=== PATIENT | male | born 1965 | race Caucasian/White ===

== ENCOUNTER 2018-08-24 16:26 | Inpatient (IN) | payer MEDICAID ==
[~2018-08-24] VITALS: Ht 170.2 cm; Wt 102.1 kg
[~2018-08-24 16:26] MED LIST: FERR-43 PO; FURO20TA4 PO; Folic Acid PO; IBUP-2030 PO; Lactulose PO; METO25TA6 PO; Multivitamins,Ther W-Minerals PO; PROP10TA10 PO; PROT40 PO; SUCR1ORA2 PO; VITAMIN B1 PO
[2018-08-24] MEDS ORDERED: ONDANSETRON HCL 4MG/2ML INJ IV STA (17:54)
[2018-08-24] MEDS ORDERED: SODIUM CHLORIDE 0.9% 1,000 ML IV ONE ×2 (17:54→19:15)
[2018-08-24 18:58] LABS: HEMATOCRIT. 25.3 % (42.0-52.0); HEMOGLOBIN. 7.9 g/dL (14.0-18.0); MEAN CORPUSCULAR HEMOGLOBIN 24.4 pg (28.0-32.0); MEAN CORPUSCULAR VOLUME 77.6 fL (80.0-94.0); MEAN PLATELET VOLUME 10.3 fl (7.4-10.4); PLATELET 121 x1000/uL (130-400); RED BLOOD CELL COUNT 3.26 mill/uL (4.7-6.1); RED CELL DISTRIBUTION WIDTH 21.8 % (11.6-14.6)
[2018-08-24 18:59] LABS: CHLORIDE 107 mEq/L (98-107)
[2018-08-24] MEDS ORDERED: PANTOPRAZOLE SODIUM 40 MG/VIAL IV ONE (19:00)
[2018-08-24 19:04] LABS: ETHANOL BLOOD < 10 mg/dL; INR 1.4; PARTIAL THROMBOPLASTIN TIME 29.5 sec (23.4-31.0)
[2018-08-24 19:26] LABS: PLATELET ESTIMATE DECREASED
[2018-08-24 23:37] VITALS: BP 162/88
[2018-08-25] VITALS (38 sets, daily range): BP systolic 114–177; BP diastolic 55–111
[2018-08-25] MEDS ORDERED: ONDANSETRON HCL 4MG/2ML INJ IV PRN (00:45)
[2018-08-25] MEDS ORDERED: LORAZEPAM 2MG/ML CPJ IV PRN ×2 (00:45→10:23)
[2018-08-25] MEDS: MORPHINE SULFATE 4 MG/ML CPJ (NOT FOR IM USE) IV PRN ×2 (01:04→10:18)
[2018-08-25] MEDS: PANTOPRAZOLE 80 MG in SODIUM CHLORIDE 0.9% 100 ML IV SCH ×3 (02:17→17:43)
[2018-08-25] MEDS: OCTREOTIDE 1,000 MCG in SODIUM CHLORIDE 0.9% 98 ML IV PRN ×2 (04:29→17:43)
[2018-08-25] MEDS: DEXT 5%/0.45% NACL KCL 20MEQ/L 1,000 ML IV SCH ×2 (04:29→12:28)
[2018-08-25 07:22] LABS: BASOPHILS % 0.4 % (0.0-2.0); EOSINOPHILS % 2.8 % (0.0-5.0); HEMOGLOBIN. 8.6 g/dL (14.0-18.0); LYMPHOCYTES % 8.8 % (20.0-50.0); MEAN CORPUSCULAR HEMOGLOBIN 26.1 pg (28.0-32.0); MEAN CORPUSCULAR VOLUME 79.1 fL (80.0-94.0); MEAN PLATELET VOLUME 10.8 fl (7.4-10.4); MONOCYTES % 8.6 % (2.0-8.0); NEUTROPHILS % 79.4 % (40.0-76.0); PLATELET 116 x1000/uL (130-400); RED BLOOD CELL COUNT 3.29 mill/uL (4.7-6.1); RED CELL DISTRIBUTION WIDTH 21.6 % (11.6-14.6)
[2018-08-25 08:00] LABS: CHLORIDE 111 mEq/L (98-107)
[2018-08-25] MEDS ORDERED: HYDRALAZINE 20MG/ML VIAL IV PRN (10:30)
[2018-08-25 11:00] LABS: TOTAL IRON BINDING CAPACITY 259 ug/dL (250-450)
[2018-08-25 11:23] LABS: FOLIC ACID (FOLATE) SERUM 5.4 ng/mL (>5.38)
[2018-08-25] MEDS ORDERED: INFLUENZA VIRUS VACCINE(AFLURIA) 0.5ML SYR IM ONE (12:00)
[2018-08-25] MEDS: CHLORDIAZEPOXIDE 25MG CAPSULE PO SCH ×2 (13:30→22:00)
[2018-08-25] MEDS ORDERED: MIDAZOLAM HCL 5 MG/5 ML VIAL IV PRN (14:41)
[2018-08-25] MEDS ORDERED: FENTANYL CITRATE/PF 50MCG/ML 2ML VIAL IV PRN (14:42)
[2018-08-25] MEDS ORDERED: FENTANYL CITRATE/PF 50MCG/ML 2ML VIAL ONE (14:46)
[2018-08-25] MEDS ORDERED: MIDAZOLAM HCL 5 MG/5 ML VIAL ONE (14:46)
[2018-08-25 16:29] LABS: HEMATOCRIT 25.9 % (42.0-52.0); HEMOGLOBIN 8.3 g/dL (14.0-18.0)
[2018-08-25] MEDS: DEXT 5%/0.45% NACL 1000ML 1,000 ML IV SCH (16:50)
[2018-08-25] MEDS: SODIUM HYPOCHLORITE 0.125% 473ML SOLUTION TOP SCH (18:00)
[2018-08-26] VITALS (44 sets, daily range): BP systolic 117–179; BP diastolic 60–106
[2018-08-26] MEDS: MORPHINE SULFATE 4 MG/ML CPJ (NOT FOR IM USE) IV PRN ×3 (00:53→21:49)
[2018-08-26] MEDS: PANTOPRAZOLE 80 MG in SODIUM CHLORIDE 0.9% 100 ML IV SCH ×3 (01:58→23:32)
[2018-08-26] MEDS: DEXT 5%/0.45% NACL 1000ML 1,000 ML IV SCH ×3 (01:58→21:37)
[2018-08-26] MEDS: CHLORDIAZEPOXIDE 25MG CAPSULE PO SCH ×3 (06:00→21:37)
[2018-08-26 06:12] LABS: BASOPHILS % 1.6 % (0.0-2.0); EOSINOPHILS % 4.5 % (0.0-5.0); HEMATOCRIT. 24.6 % (42.0-52.0); HEMOGLOBIN. 7.9 g/dL (14.0-18.0); MEAN CORPUSCULAR HEMOGLOBIN 25.6 pg (28.0-32.0); MEAN CORPUSCULAR VOLUME 79.5 fL (80.0-94.0); MEAN PLATELET VOLUME 10.3 fl (7.4-10.4); MONOCYTES % 6.6 % (2.0-8.0); NEUTROPHILS % 77.3 % (40.0-76.0); PLATELET 122 x1000/uL (130-400); RED CELL DISTRIBUTION WIDTH 21.7 % (11.6-14.6)
[2018-08-26 06:15] LABS: AMMONIA 104 uMol/L (<32)
[2018-08-26 06:24] LABS: CHLORIDE 107 mEq/L (98-107)
[2018-08-26 06:35] LABS: INR 1.4; PROTHROMBIN TIME 13.8 sec (9.1-11.1)
[2018-08-26] MEDS: LACTULOSE 20G/30ML UDC PO SCH (10:58)
[2018-08-26 11:15] LABS: HEMATOCRIT 23.9 % (42.0-52.0); HEMOGLOBIN 7.8 g/dL (14.0-18.0)
[2018-08-26] MEDS: OCTREOTIDE 1,000 MCG in SODIUM CHLORIDE 0.9% 98 ML IV PRN (13:15)
[2018-08-26] MEDS: SODIUM HYPOCHLORITE 0.125% 473ML SOLUTION TOP SCH (13:16)
[2018-08-26 19:32] LABS: HEMATOCRIT 23.7 % (42.0-52.0); HEMOGLOBIN 7.6 g/dL (14.0-18.0)
[2018-08-27] VITALS (45 sets, daily range): BP systolic 133–163; BP diastolic 43–113
[2018-08-27 02:20] LABS: HEMATOCRIT 24.7 % (42.0-52.0)
[2018-08-27 05:24] LABS: BASOPHILS % 1.1 % (0.0-2.0); EOSINOPHILS % 8.4 % (0.0-5.0); HEMATOCRIT. 25.4 % (42.0-52.0); HEMOGLOBIN. 8.1 g/dL (14.0-18.0); LYMPHOCYTES % 9.2 % (20.0-50.0); MEAN CORPUSCULAR HEMOGLOBIN 25.8 pg (28.0-32.0); MEAN CORPUSCULAR VOLUME 80.6 fL (80.0-94.0); MEAN PLATELET VOLUME 10.2 fl (7.4-10.4); MONOCYTES % 7.9 % (2.0-8.0); NEUTROPHILS % 73.4 % (40.0-76.0); PLATELET 121 x1000/uL (130-400); RED BLOOD CELL COUNT 3.16 mill/uL (4.7-6.1); RED CELL DISTRIBUTION WIDTH 22.1 % (11.6-14.6)
[2018-08-27 05:34] LABS: CHLORIDE 106 mEq/L (98-107)
[2018-08-27 05:39] LABS: AMMONIA 93 uMol/L (<32)
[2018-08-27] MEDS: OCTREOTIDE 1,000 MCG in SODIUM CHLORIDE 0.9% 98 ML IV PRN ×2 (05:54→23:12)
[2018-08-27] MEDS: CHLORDIAZEPOXIDE 25MG CAPSULE PO SCH ×3 (05:54→21:57)
[2018-08-27] MEDS: LACTULOSE 20G/30ML UDC PO SCH (08:47)
[2018-08-27] MEDS: DEXT 5%/0.45% NACL 1000ML 1,000 ML IV SCH ×2 (08:48→18:20)
[2018-08-27] MEDS: SODIUM HYPOCHLORITE 0.125% 473ML SOLUTION TOP SCH (08:48)
[2018-08-27] MEDS: PANTOPRAZOLE 80 MG in SODIUM CHLORIDE 0.9% 100 ML IV SCH ×2 (15:03→23:12)
[2018-08-27] MEDS: MORPHINE SULFATE 4 MG/ML CPJ (NOT FOR IM USE) IV PRN (15:04)
[2018-08-27] MEDS ORDERED: POTASSIUM CHLORIDE 20MEQ TABLET SR PO NR (17:30)
[2018-08-28] VITALS (12 sets, daily range): BP systolic 130–173; BP diastolic 73–136
[2018-08-28] MEDS: CHLORDIAZEPOXIDE 25MG CAPSULE PO SCH ×3 (05:26→21:20)
[2018-08-28] MEDS: DEXT 5%/0.45% NACL 1000ML 1,000 ML IV SCH ×2 (05:26→14:47)
[2018-08-28 06:39] LABS: BASOPHILS % 0.9 % (0.0-2.0); EOSINOPHILS % 8.6 % (0.0-5.0); HEMATOCRIT. 25.4 % (42.0-52.0); HEMOGLOBIN. 8.4 g/dL (14.0-18.0); LYMPHOCYTES % 9.8 % (20.0-50.0); MEAN CORPUSCULAR HEMOGLOBIN 26.9 pg (28.0-32.0); MEAN CORPUSCULAR VOLUME 81.3 fL (80.0-94.0); MEAN PLATELET VOLUME 10.4 fl (7.4-10.4); MONOCYTES % 9.3 % (2.0-8.0); NEUTROPHILS % 71.4 % (40.0-76.0); PLATELET 136 x1000/uL (130-400); RED BLOOD CELL COUNT 3.12 mill/uL (4.7-6.1); RED CELL DISTRIBUTION WIDTH 22.3 % (11.6-14.6)
[2018-08-28 06:48] LABS: AMMONIA 95 uMol/L (<32)
[2018-08-28 06:56] LABS: CHLORIDE 105 mEq/L (98-107)
[2018-08-28] MEDS: SODIUM HYPOCHLORITE 0.125% 473ML SOLUTION TOP SCH (09:16)
[2018-08-28] MEDS: LACTULOSE 20G/30ML UDC PO SCH ×3 (09:16→18:13)
[2018-08-28] MEDS: PANTOPRAZOLE 80 MG in SODIUM CHLORIDE 0.9% 100 ML IV SCH ×2 (09:17→21:20)
[2018-08-29] VITALS (11 sets, daily range): BP systolic 121–157; BP diastolic 48–93
[2018-08-29] MEDS: DEXT 5%/0.45% NACL 1000ML 1,000 ML IV SCH ×2 (01:33→10:33)
[2018-08-29] MEDS: CHLORDIAZEPOXIDE 25MG CAPSULE PO SCH ×2 (05:40→13:32)
[2018-08-29 07:07] LABS: AMMONIA 51 uMol/L (<32)
[2018-08-29 07:19] LABS: BASOPHILS % 1.4 % (0.0-2.0); EOSINOPHILS % 7.3 % (0.0-5.0); HEMATOCRIT. 25.7 % (42.0-52.0); HEMOGLOBIN. 8.2 g/dL (14.0-18.0); LYMPHOCYTES % 14.7 % (20.0-50.0); MEAN CORPUSCULAR HEMOGLOBIN 26.1 pg (28.0-32.0); MEAN CORPUSCULAR VOLUME 81.6 fL (80.0-94.0); MEAN PLATELET VOLUME 10.2 fl (7.4-10.4); MONOCYTES % 8.3 % (2.0-8.0); NEUTROPHILS % 68.3 % (40.0-76.0); PLATELET 131 x1000/uL (130-400); RED BLOOD CELL COUNT 3.16 mill/uL (4.7-6.1); RED CELL DISTRIBUTION WIDTH 22.6 % (11.6-14.6)
[2018-08-29 07:32] LABS: CHLORIDE 106 mEq/L (98-107)
[2018-08-29] MEDS: LACTULOSE 20G/30ML UDC PO SCH ×3 (09:39→17:35)
[2018-08-29] MEDS: PANTOPRAZOLE 80 MG in SODIUM CHLORIDE 0.9% 100 ML IV SCH (09:40)
[2018-08-29] MEDS: SODIUM HYPOCHLORITE 0.125% 473ML SOLUTION TOP SCH (09:40)
[2018-08-29] MEDS: MORPHINE SULFATE 4 MG/ML CPJ (NOT FOR IM USE) IV PRN (10:33)
[2018-08-30] MEDS ORDERED: PANTOPRAZOLE 40MG DR TABLET PO SCH (07:30)
== END 2018-08-29 20:00 | disposition home health service (06) | DRG 280 ==
LOC: ER 16:26 → 3WST 19:34 → EDBEDREQ 19:38 → EDBEDREQSVC 19:38 → ENRESERV 20:46 → 3WST 23:54 → MICUSO 08-25 15:20 → 5EST 08-27 22:34
PROVIDERS: ADMIT Internal Medicine; ATTEND Internal Medicine
PROC: 30233N1 Transfusion of Nonautologous Red Blood Cells into Peripheral Vein, Percutaneous Approach (ICD-10-PCS; 2018-08-24)
PROC: 06L38CZ Occlusion of Esophageal Vein with Extraluminal Device, Via Natural or Artificial Opening Endoscopic (ICD-10-PCS; principal; 2018-08-25 13:00)
DX: K70.31 Alcoholic cirrhosis of liver with ascites (principal); I85.11 Secondary esophageal varices with bleeding; E43 Unspecified severe protein-calorie malnutrition; J90 Pleural effusion, not elsewhere classified; D69.59 Other secondary thrombocytopenia; D68.4 Acquired coagulation factor deficiency; K76.6 Portal hypertension; L03.115 Cellulitis of right lower limb; L97.919 Non-pressure chronic ulcer of unspecified part of right lower leg with unspecified severity; F10.10 Alcohol abuse, uncomplicated; D50.9 Iron deficiency anemia, unspecified; D63.8 Anemia in other chronic diseases classified elsewhere; I10 Essential (primary) hypertension; I87.2 Venous insufficiency (chronic) (peripheral); K40.20 Bilateral inguinal hernia, without obstruction or gangrene, not specified as recurrent; K31.89 Other diseases of stomach and duodenum; E66.9 Obesity, unspecified; I73.9 Peripheral vascular disease, unspecified; K31.9 Disease of stomach and duodenum, unspecified; K42.9 Umbilical hernia without obstruction or gangrene; K44.9 Diaphragmatic hernia without obstruction or gangrene; Z68.35 Body mass index [BMI] 35.0-35.9, adult
CPT/HCPCS: 36415; 71045; 74176; 80048; 80053; 80076; 82105; 82140; 82607; 82728; 82746; 83540; 83550; 83690; 83880; 84484; 85014; 85018; 85025; 85610; 85730; 86850; 86900; 86920; 90686; 93005; 93970; 96361; 96374; 96375; 99291; C9113; G0482; J0360; J2060; J2250; J2270; J2354; J2405; J3010; J3490; J7030; J7050; P9016

== ENCOUNTER 2019-08-06 08:04 | Inpatient (IN) | payer MEDICAID ==
[~2019-08-06] VITALS: Ht 172.7 cm; Wt 104.3 kg
[2019-08-06] VITALS (7 sets, daily range): BP systolic 132–142; BP diastolic 69–83
[2019-08-06] MEDS ORDERED: MORPHINE SULFATE 4 MG/ML CPJ (NOT FOR IM USE) IV STA (08:36)
[2019-08-06] MEDS ORDERED: PANTOPRAZOLE SODIUM 40 MG/VIAL IV STA (08:36)
[2019-08-06] MEDS ORDERED: ONDANSETRON HCL 4MG/2ML INJ IV STA (08:36)
[2019-08-06] MEDS ORDERED: SODIUM CHLORIDE 0.9% 1,000 ML IV ONE (08:36)
[2019-08-06 09:24] LABS: BASOPHILS % 0.9 % (0.0-2.0); EOSINOPHILS % 0.6 % (0.0-5.0); HEMATOCRIT. 22.7 % (42.0-52.0); HEMOGLOBIN. 7.1 g/dL (14.0-18.0); LYMPHOCYTES % 7.5 % (20.0-50.0); MEAN CORPUSCULAR VOLUME 80.4 fL (80.0-94.0); MEAN PLATELET VOLUME 11.2 fl (7.4-10.4); MONOCYTES % 8.7 % (2.0-8.0); NEUTROPHILS % 82.3 % (40.0-76.0); PLATELET 190 x1000/uL (130-400); RED BLOOD CELL COUNT 2.82 mill/uL (4.7-6.1); RED CELL DISTRIBUTION WIDTH 22.4 % (11.6-14.6)
[2019-08-06 09:28] LABS: INR 1.4; PROTHROMBIN TIME 14.2 sec (9.6-11.0)
[2019-08-06 09:29] LABS: CHLORIDE 111 mEq/L (98-107)
[2019-08-06 09:33] LABS: ETHANOL BLOOD < 10 mg/dL
[2019-08-06] MEDS ORDERED: OCTREOTIDE 1,000 MCG in SODIUM CHLORIDE 0.9% 100 ML IV ONE (09:45)
[2019-08-06] MEDS ORDERED: OCTREOTIDE ACETATE 50 MCG/ML 1ML IV ONE (09:45)
[2019-08-06] MEDS ORDERED: PHYTONADIONE 10MG/ML AMP IM ONE (09:45)
[2019-08-06] MEDS ORDERED: OCTREOTIDE 1,000 MCG in SODIUM CHLORIDE 0.9% 98 ML IV NR (10:00)
[2019-08-06 10:01] LABS: PLATELET ESTIMATE NORMAL
[2019-08-06] MEDS ORDERED: DIPHENHYDRAMINE 50MG/ML VIAL IV PRN (10:30)
[2019-08-06] MEDS ORDERED: GUAIFENESIN 200MG/10ML SUGAR FREE UDC PO PRN (10:30)
[2019-08-06] MEDS ORDERED: DOCUSATE SODIUM 100MG CAPSULE PO PRN (10:30)
[2019-08-06] MEDS ORDERED: HYDROCODONE/ACETAMINOPHEN 5/325MG TABLET PO PRN (10:30)
[2019-08-06] MEDS ORDERED: ONDANSETRON HCL 4MG/2ML INJ IV PRN (10:30)
[2019-08-06] MEDS ORDERED: CLONIDINE 0.1MG TABLET PO PRN (10:30)
[2019-08-06] MEDS ORDERED: LORAZEPAM 2MG/ML CPJ IV PRN (10:30)
[2019-08-06] MEDS ORDERED: ACETAMINOPHEN 325MG TABLET PO PRN (10:30)
[2019-08-06] MEDS ORDERED: NA PHOS,M-B/NA PHOS,DI-BA ENEMA 118ML PR PRN (10:30)
[2019-08-06] MEDS ORDERED: MAGNESIUM/ALUMINUM HYDROXIDE/SIMETHICONE 30ML UDC PO PRN (10:30)
[2019-08-06] MEDS ORDERED: IPRATROPIUM/ALBUTEROL 0.5-3(2.5)MG/3ML NEB NEB PRN (10:30)
[2019-08-06] MEDS: DEXT 5%/0.45% NACL 1000ML 1,000 ML IV SCH (15:18)
[2019-08-06 17:04] LABS: HEMATOCRIT 21.7 % (42.0-52.0); MEAN CORPUSCULAR HEMOGLOBIN 25.9 pg (28.0-32.0); MEAN CORPUSCULAR VOLUME 80.9 fL (80.0-94.0); PLATELET 133 x1000/uL (130-400); RED BLOOD CELL COUNT 2.68 mill/uL (4.7-6.1)
[2019-08-06] MEDS ORDERED: CEFEPIME 1,000 MG in DEXTROSE 5% WATER 50 ML IV SCH (18:00)
[2019-08-06] MEDS ORDERED: FOLIC ACID 1 MG, THIAMINE HCL 100 MG, MVI, ADULT NO.1 10 ML in DEXT 5%/0.45% NACL 1000M... IV ONE ×4 (18:00)
[2019-08-06] MEDS: PIPERACILLIN/TAZOBACTAM 3.375 G in DEXT 5% WATER 100 ML IV SCH (20:03)
[2019-08-06] MEDS ORDERED: CEFEPIME HCL 1000MG/VIAL INJ IM SCH (21:00)
[2019-08-06] MEDS ORDERED: VANCOMYCIN 2,000 MG in DEXT 5% WATER 500 ML IV NR (21:00)
[2019-08-06] MEDS: PANTOPRAZOLE SODIUM 40 MG/VIAL IV SCH (21:13)
[2019-08-06] MEDS ORDERED: METRONIDAZOLE 500 MG PREMIX 100 ML IV SCH (22:00)
[2019-08-07] VITALS (25 sets, daily range): BP systolic 115–157; BP diastolic 53–97
[2019-08-07] MEDS: HYDROMORPHONE HCL/PF 2MG/ML CPJ IV PRN (00:09)
[2019-08-07] MEDS: PIPERACILLIN/TAZOBACTAM 3.375 G in DEXT 5% WATER 100 ML IV SCH ×4 (04:01→20:35)
[2019-08-07] MEDS ORDERED: VANCOMYCIN 1250MG in DEXTROSE 5% WATER 250ML IV SCH (05:00)
[2019-08-07 06:29] LABS: CHLORIDE 109 mEq/L (98-107)
[2019-08-07 06:39] LABS: INR 1.3; PROTHROMBIN TIME 13.3 sec (9.6-11.0)
[2019-08-07 06:40] LABS: LDL CHOLESTEROL 46 mg/dL (5-100)
[2019-08-07 06:41] LABS: HDL CHOLESTEROL 38 mg/dL (40-59)
[2019-08-07 06:42] LABS: BASOPHILS % 1.1 % (0.0-2.0); HEMATOCRIT. 23.6 % (42.0-52.0); HEMOGLOBIN. 7.9 g/dL (14.0-18.0); LYMPHOCYTES % 11.2 % (20.0-50.0); MEAN CORPUSCULAR HEMOGLOBIN 27.3 pg (28.0-32.0); MEAN CORPUSCULAR VOLUME 82.1 fL (80.0-94.0); MEAN PLATELET VOLUME 10.8 fl (7.4-10.4); MONOCYTES % 8.4 % (2.0-8.0); NEUTROPHILS % 72.3 % (40.0-76.0); PLATELET 116 x1000/uL (130-400); RED BLOOD CELL COUNT 2.88 mill/uL (4.7-6.1); RED CELL DISTRIBUTION WIDTH 19.5 % (11.6-14.6); T4 FREE 0.94 ng/dL (0.76-1.46)
[2019-08-07] MEDS ORDERED: DEXTROSE 50% WATER 50ML SYRINGE IV PRN (07:45)
[2019-08-07] MEDS: INSULIN LISPRO 100 UNITS/ML SUBCUT SCH ×4 (07:53→21:07)
[2019-08-07] MEDS: BLOOD SUGAR DIAGNOSTIC STRIP TEST SCH ×4 (08:29→21:08)
[2019-08-07] MEDS: PANTOPRAZOLE SODIUM 40 MG/VIAL IV SCH ×2 (08:38→21:08)
[2019-08-07] MEDS ORDERED: PANTOPRAZOLE SODIUM 40 MG/VIAL IV SCH (09:00)
[2019-08-07] MEDS: VANCOMYCIN 1 G PREMIX 200 ML IV SCH ×2 (14:02→22:10)
[2019-08-07] MEDS ORDERED: OCTREOTIDE 1,000 MCG in SODIUM CHLORIDE 0.9% 100 ML IV SCH (17:30)
[2019-08-07 18:00] LABS: HEMATOCRIT 26.3 % (42.0-52.0); HEMOGLOBIN 8.6 g/dL (14.0-18.0)
[2019-08-07 18:15] LABS: CREATINE KINASE 68 IU/L (39-308)
[2019-08-07 18:17] LABS: CREATINE KINASE MB FRACTION 1.2 ng/mL (0.5-3.6)
[2019-08-07] MEDS: DEXT 5%/0.45% NACL 1000ML 1,000 ML IV SCH (20:34)
[2019-08-07] MEDS ORDERED: PROPRANOLOL HCL 10MG TABLET PO SCH (21:00)
[2019-08-07 23:40] LABS: CREATINE KINASE 65 IU/L (39-308)
[2019-08-07 23:41] LABS: CREATINE KINASE MB FRACTION 1.1 ng/mL (0.5-3.6)
[2019-08-08] VITALS (12 sets, daily range): BP systolic 126–166; BP diastolic 69–96
[2019-08-08] MEDS: PIPERACILLIN/TAZOBACTAM 3.375 G in DEXT 5% WATER 100 ML IV SCH ×4 (02:04→21:06)
[2019-08-08] MEDS: DEXT 5%/0.45% NACL 1000ML 1,000 ML IV SCH ×2 (02:25→15:28)
[2019-08-08] MEDS: VANCOMYCIN 1 G PREMIX 200 ML IV SCH ×2 (05:36→23:53)
[2019-08-08] MEDS: BLOOD SUGAR DIAGNOSTIC STRIP TEST SCH ×4 (06:35→21:08)
[2019-08-08 06:51] LABS: BASOPHILS % 1.3 % (0.0-2.0); EOSINOPHILS % 9.3 % (0.0-5.0); HEMATOCRIT. 29.3 % (42.0-52.0); HEMOGLOBIN. 9.6 g/dL (14.0-18.0); LYMPHOCYTES % 13.1 % (20.0-50.0); MEAN CORPUSCULAR HEMOGLOBIN 26.9 pg (28.0-32.0); MEAN CORPUSCULAR VOLUME 81.9 fL (80.0-94.0); MEAN PLATELET VOLUME 10.4 fl (7.4-10.4); NEUTROPHILS % 68.3 % (40.0-76.0); PLATELET 124 x1000/uL (130-400); RED BLOOD CELL COUNT 3.57 mill/uL (4.7-6.1)
[2019-08-08 07:00] LABS: CHLORIDE 107 mEq/L (98-107)
[2019-08-08 07:15] LABS: CREATINE KINASE 67 IU/L (39-308)
[2019-08-08 07:17] LABS: CREATINE KINASE MB FRACTION 1.3 ng/mL (0.5-3.6)
[2019-08-08] MEDS: INSULIN LISPRO 100 UNITS/ML SUBCUT SCH ×4 (07:20→21:00)
[2019-08-08] MEDS: PANTOPRAZOLE SODIUM 40 MG/VIAL IV SCH ×2 (08:26→21:09)
[2019-08-08] MEDS: PROPRANOLOL HCL 10MG TABLET PO SCH ×2 (08:27→21:08)
[2019-08-08] MEDS ORDERED: PROPAFENONE HCL 150MG TABLET PO SCH (09:00)
[2019-08-09] VITALS: BP 156/95
[2019-08-09] MEDS: PIPERACILLIN/TAZOBACTAM 3.375 G in DEXT 5% WATER 100 ML IV SCH ×3 (02:36→13:08)
[2019-08-09] MEDS: DEXT 5%/0.45% NACL 1000ML 1,000 ML IV SCH ×2 (04:58→18:21)
[2019-08-09] MEDS: VANCOMYCIN 1 G PREMIX 200 ML IV SCH ×2 (05:43→14:14)
[2019-08-09] MEDS: BLOOD SUGAR DIAGNOSTIC STRIP TEST SCH ×3 (06:27→16:47)
[2019-08-09 07:08] LABS: BASOPHILS % 1.4 % (0.0-2.0); EOSINOPHILS % 9.4 % (0.0-5.0); HEMATOCRIT. 28.6 % (42.0-52.0); HEMOGLOBIN. 9.2 g/dL (14.0-18.0); MEAN CORPUSCULAR HEMOGLOBIN 26.6 pg (28.0-32.0); MEAN CORPUSCULAR VOLUME 82.2 fL (80.0-94.0); MEAN PLATELET VOLUME 10.3 fl (7.4-10.4); MONOCYTES % 11.5 % (2.0-8.0); NEUTROPHILS % 60.7 % (40.0-76.0); PLATELET 120 x1000/uL (130-400); RED BLOOD CELL COUNT 3.48 mill/uL (4.7-6.1); RED CELL DISTRIBUTION WIDTH 19.8 % (11.6-14.6)
[2019-08-09 07:10] LABS: CHLORIDE 108 mEq/L (98-107)
[2019-08-09] MEDS: INSULIN LISPRO 100 UNITS/ML SUBCUT SCH ×3 (07:46→17:22)
[2019-08-09 08:00] VITALS: BP 139/82
[2019-08-09] MEDS ORDERED: POTASSIUM CHLORIDE 20MEQ TABLET SR PO NR (08:00)
[2019-08-09] MEDS: PANTOPRAZOLE SODIUM 40 MG/VIAL IV SCH (08:19)
[2019-08-09] MEDS: PROPRANOLOL HCL 10MG TABLET PO SCH (08:20)
[2019-08-09] MEDS: HYDROMORPHONE HCL/PF 2MG/ML CPJ IV PRN (08:21)
[2019-08-09 12:00] VITALS: BP 132/82
[2019-08-09] MEDS ORDERED: MAGNESIUM 2 G PREMIX 50 ML IV NR (15:00)
[2019-08-09 16:00] VITALS: BP 140/83
[2019-08-09 17:51] VITALS: BP 140/83
== END 2019-08-09 18:49 | disposition home health service (06) | DRG 710 ==
LOC: ER 08:04 → 3WST 08:58 → EDBEDREQ 09:05 → EDBEDREQTM 09:05 → CANRESERV 09:35 → ENRESERV 09:35 → EDBEDREQSVC 09:37 → EDBEDREQTM 09:40 → ENRESERV 10:15 → 7WST 08-09 03:20
PROVIDERS: ADMIT Internal Medicine; ATTEND Internal Medicine
PROC: 30233N1 Transfusion of Nonautologous Red Blood Cells into Peripheral Vein, Percutaneous Approach (ICD-10-PCS; 2019-08-06)
PROC: 0KBS0ZZ Excision of Right Lower Leg Muscle, Open Approach (ICD-10-PCS; principal; 2019-08-08)
PROC: 0KBS0ZZ Excision of Right Lower Leg Muscle, Open Approach (ICD-10-PCS; 2019-08-08)
DX: A41.9 Sepsis, unspecified organism (principal); J96.01 Acute respiratory failure with hypoxia; J69.0 Pneumonitis due to inhalation of food and vomit; E43 Unspecified severe protein-calorie malnutrition; D61.818 Other pancytopenia; K76.6 Portal hypertension; L03.115 Cellulitis of right lower limb; I11.9 Hypertensive heart disease without heart failure; I10 Essential (primary) hypertension; E86.0 Dehydration; D50.9 Iron deficiency anemia, unspecified; K70.31 Alcoholic cirrhosis of liver with ascites; J45.909 Unspecified asthma, uncomplicated; K44.9 Diaphragmatic hernia without obstruction or gangrene; I87.2 Venous insufficiency (chronic) (peripheral); L97.919 Non-pressure chronic ulcer of unspecified part of right lower leg with unspecified severity; F10.20 Alcohol dependence, uncomplicated; E78.5 Hyperlipidemia, unspecified; K31.9 Disease of stomach and duodenum, unspecified; Z79.899 Other long term (current) drug therapy; Z82.49 Family history of ischemic heart disease and other diseases of the circulatory system; Z83.3 Family history of diabetes mellitus; Z68.35 Body mass index [BMI] 35.0-35.9, adult
CPT/HCPCS: 36415; 71045; 80048; 80061; 80202; 80320; 82550; 82553; 82962; 83036; 83735; 83880; 84439; 84443; 84484; 85014; 85018; 85027; 85379; 86850; 86900; 86920; 93005; 93306; 96374; 99291; C9113; J0692; J1170; J1200; J1815; J2270; J2354; J2405; J2543; J3370; J3411; J3430; J3475; J3490; J7030; J7040; J7050; J7060; P9016; P9021; G0480

== ENCOUNTER 2019-11-03 12:25 | Inpatient (IN) | payer MEDICAID, OTHER ==
[~2019-11-03] VITALS: Ht 160 cm; Wt 104.3 kg
[2019-11-03] MEDS ORDERED: PANTOPRAZOLE SODIUM 40 MG/VIAL IV STA (12:48)
[2019-11-03] MEDS ORDERED: OCTREOTIDE 1,000 MCG in SODIUM CHLORIDE 0.9% 100 ML IV STA (12:48)
[2019-11-03] MEDS ORDERED: OCTREOTIDE ACETATE 50 MCG/ML 1ML IV STA (12:48)
[2019-11-03] MEDS ORDERED: MORPHINE SULFATE 4 MG/ML CPJ (NOT FOR IM USE) IV STA (12:48)
[2019-11-03] MEDS ORDERED: SODIUM CHLORIDE 0.9% 1,000 ML IV ONE (12:48)
[2019-11-03] MEDS ORDERED: ONDANSETRON HCL 4MG/2ML INJ IV STA (12:48)
[2019-11-03] MEDS ORDERED: PANTOPRAZOLE 80 MG in SODIUM CHLORIDE 0.9% 100 ML IV STA (12:48)
[2019-11-03] MEDS ORDERED: OCTREOTIDE 1,000 MCG in SODIUM CHLORIDE 0.9% 98 ML IV NR (13:00)
[2019-11-03 13:38] LABS: HEMATOCRIT. 26.3 % (42.0-52.0); HEMOGLOBIN. 8.3 g/dL (14.0-18.0); MEAN CORPUSCULAR HEMOGLOBIN 25.1 pg (28.0-32.0); MEAN CORPUSCULAR VOLUME 79.2 fL (80.0-94.0); PLATELET 101 x1000/uL (130-400); RED BLOOD CELL COUNT 3.32 mill/uL (4.7-6.1); RED CELL DISTRIBUTION WIDTH 23.1 % (11.6-14.6)
[2019-11-03 13:47] LABS: CHLORIDE 108 mEq/L (98-107); INR 1.3; PARTIAL THROMBOPLASTIN TIME 32.4 sec (23.4-31.0); PROTHROMBIN TIME 13.4 sec (9.6-11.0)
[2019-11-03 14:37] LABS: PLATELET ESTIMATE DECREASED
[2019-11-03] MEDS ORDERED: FUROSEMIDE 40MG/4ML VIAL IVP ONE (15:30)
[2019-11-03 18:01] LABS: CLARITY URINE CLEAR (CLEAR); COLOR URINE DARK YELLOW (YELLOW); KETONES URINE NEGATIVE (NEGATIVE); LEUKOCYTE ESTERASE URINE NEGATIVE (NEGATIVE); NITRITE URINE NEGATIVE (NEGATIVE); OCCULT BLOOD URINE 2+ (NEGATIVE); PH URINE 5.5 (4.5-8.0); PROTEIN URINE TRACE (NEGATIVE); SPECIFIC GRAVITY URINE 1.014 (1.005-1.030)
[2019-11-04] MEDS ORDERED: FENTANYL CITRATE/PF 50MCG/ML 2ML VIAL ONE (11:47)
[2019-11-04] MEDS ORDERED: MIDAZOLAM HCL 5 MG/5 ML VIAL ONE (11:48)
[2019-11-04] MEDS ORDERED: ONDANSETRON HCL 4MG/2ML INJ IV PRN (12:30)
[2019-11-04] MEDS ORDERED: ACETAMINOPHEN 650MG SUPP PR PRN (12:30)
[2019-11-04] MEDS ORDERED: IPRATROPIUM/ALBUTEROL 0.5-3(2.5)MG/3ML NEB NEB PRN (12:30)
[2019-11-04] MEDS ORDERED: CEFTRIAXONE 1 G PREMIX 50 ML IV SCH (13:00)
[2019-11-04 14:15] LABS: *AMPHETAMINES SCREEN URINE PRESUMTIVE POSITIVE (NEGATIVE); *BARBITURATES SCREEN URINE NEGATIVE (NEGATIVE); *COCAINE SCREEN URINE NEGATIVE (NEGATIVE); CANNABINOID URINE SCREEN PRESUMTIVE POSITIVE (NEGATIVE); METHADONE URINE SCREEN NEGATIVE (NEGATIVE); OPIATES URINE SCREEN PRESUMTIVE POSITIVE (NEGATIVE); PHENCYCLIDINE URINE SCREEN NEGATIVE (NEGATIVE)
[2019-11-04 14:17] LABS: *BENZODIAZEPINES SCREEN URINE NEGATIVE (NEGATIVE)
[2019-11-04] MEDS: MORPHINE SULFATE 2 MG/ML CPJ (NOT FOR IM USE) IV PRN (15:41)
[2019-11-04 15:49] VITALS: BP 143/74
[2019-11-04 16:00] VITALS: BP 135/81
[2019-11-04] MEDS ORDERED: MVI, ADULT NO.1 10 ML, FOLIC ACID 1 MG, THIAMINE HCL 100 MG in SODIUM CHLORIDE 0.9% 1,0... IV NR ×4 (16:00)
[2019-11-04] MEDS: PANTOPRAZOLE SODIUM 40 MG/VIAL IV SCH (17:25)
[2019-11-04 17:33] VITALS: BP 140/70
[2019-11-04] MEDS: LEVOFLOXACIN 750MG PREMIX 150 ML IV SCH (18:07)
[2019-11-04 20:00] VITALS: BP 134/71
[2019-11-04 22:00] VITALS: BP 130/70
[2019-11-05] VITALS (12 sets, daily range): BP systolic 110–150; BP diastolic 67–79
[2019-11-05] MEDS: MORPHINE SULFATE 2 MG/ML CPJ (NOT FOR IM USE) IV PRN ×3 (00:38→19:04)
[2019-11-05 06:32] LABS: CHLORIDE 109 mEq/L (98-107); HEMATOCRIT. 23.3 % (42.0-52.0); HEMOGLOBIN. 7.4 g/dL (14.0-18.0); MEAN CORPUSCULAR HEMOGLOBIN 25.5 pg (28.0-32.0); MEAN CORPUSCULAR VOLUME 80.7 fL (80.0-94.0); MEAN PLATELET VOLUME 10.7 fl (7.4-10.4); PLATELET 74 x1000/uL (130-400); RED BLOOD CELL COUNT 2.89 mill/uL (4.7-6.1); RED CELL DISTRIBUTION WIDTH 22.8 % (11.6-14.6)
[2019-11-05 06:37] LABS: PHOSPHORUS 2.3 mg/dL (2.5-4.9)
[2019-11-05 06:38] LABS: LDL CHOLESTEROL 42 mg/dL (5-100)
[2019-11-05 06:41] LABS: HDL CHOLESTEROL 26 mg/dL (40-59)
[2019-11-05] MEDS: PANTOPRAZOLE SODIUM 40 MG/VIAL IV SCH ×2 (08:30→16:19)
[2019-11-05] MEDS ORDERED: CEFTRIAXONE 1 G PREMIX 50 ML IV SCH (13:00)
[2019-11-05] MEDS: MAGNESIUM OXIDE 400MG TABLET PO SCH (14:13)
[2019-11-05] MEDS: SPIRONOLACTONE 25MG TABLET PO SCH (14:14)
[2019-11-05] MEDS: FUROSEMIDE 40MG/4ML VIAL IVP SCH (14:15)
[2019-11-05 14:28] LABS: PLATELET ESTIMATE DECREASED
[2019-11-05] MEDS: LEVOFLOXACIN 750MG PREMIX 150 ML IV SCH (18:37)
[2019-11-05] MEDS: PROPRANOLOL HCL 10MG TABLET PO SCH (21:10)
[2019-11-06] VITALS (11 sets, daily range): BP systolic 96–143; BP diastolic 51–75
[2019-11-06 06:13] LABS: BASOPHILS % 0.6 % (0.0-2.0); EOSINOPHILS % 8.6 % (0.0-5.0); HEMATOCRIT. 22.6 % (42.0-52.0); HEMOGLOBIN. 7.2 g/dL (14.0-18.0); LYMPHOCYTES % 10.5 % (20.0-50.0); MEAN CORPUSCULAR HEMOGLOBIN 25.7 pg (28.0-32.0); MEAN CORPUSCULAR VOLUME 80.5 fL (80.0-94.0); MEAN PLATELET VOLUME 10.7 fl (7.4-10.4); MONOCYTES % 13.1 % (2.0-8.0); NEUTROPHILS % 67.2 % (40.0-76.0); PLATELET 80 x1000/uL (130-400); RED BLOOD CELL COUNT 2.81 mill/uL (4.7-6.1); RED CELL DISTRIBUTION WIDTH 22.9 % (11.6-14.6)
[2019-11-06 06:34] LABS: CHLORIDE 104 mEq/L (98-107)
[2019-11-06] MEDS: MAGNESIUM OXIDE 400MG TABLET PO SCH (09:40)
[2019-11-06] MEDS: SPIRONOLACTONE 25MG TABLET PO SCH (09:41)
[2019-11-06] MEDS: PROPRANOLOL HCL 10MG TABLET PO SCH ×2 (09:42→21:25)
[2019-11-06] MEDS: FUROSEMIDE 40MG/4ML VIAL IVP SCH (09:42)
[2019-11-06] MEDS ORDERED: POTASSIUM CHLORIDE 20MEQ TABLET SR PO NR (09:45)
[2019-11-06] MEDS: PANTOPRAZOLE SODIUM 40 MG/VIAL IV SCH ×2 (09:48→17:00)
[2019-11-06] MEDS: LEVOFLOXACIN 750MG PREMIX 150 ML IV SCH (18:00)
[2019-11-07] VITALS (7 sets, daily range): BP systolic 110–168; BP diastolic 52–83
[2019-11-07 07:05] LABS: BASOPHILS % 0.9 % (0.0-2.0); EOSINOPHILS % 9.6 % (0.0-5.0); HEMATOCRIT. 23.7 % (42.0-52.0); HEMOGLOBIN. 7.6 g/dL (14.0-18.0); LYMPHOCYTES % 16.8 % (20.0-50.0); MEAN CORPUSCULAR HEMOGLOBIN 25.7 pg (28.0-32.0); MEAN CORPUSCULAR VOLUME 79.6 fL (80.0-94.0); MEAN PLATELET VOLUME 10.7 fl (7.4-10.4); MONOCYTES % 13.7 % (2.0-8.0); PLATELET 93 x1000/uL (130-400); RED BLOOD CELL COUNT 2.97 mill/uL (4.7-6.1); RED CELL DISTRIBUTION WIDTH 22.5 % (11.6-14.6)
[2019-11-07 07:45] LABS: CHLORIDE 104 mEq/L (98-107)
[2019-11-07] MEDS: FUROSEMIDE 40MG/4ML VIAL IVP SCH (08:19)
[2019-11-07] MEDS: MAGNESIUM OXIDE 400MG TABLET PO SCH (08:19)
[2019-11-07] MEDS: PANTOPRAZOLE SODIUM 40 MG/VIAL IV SCH ×2 (08:19→18:28)
[2019-11-07] MEDS: SPIRONOLACTONE 25MG TABLET PO SCH (08:20)
[2019-11-07] MEDS: PROPRANOLOL HCL 10MG TABLET PO SCH ×2 (08:20→20:51)
[2019-11-07] MEDS ORDERED: POTASSIUM CHLORIDE 20MEQ TABLET SR PO NR (10:30)
[2019-11-07] MEDS: LEVOFLOXACIN 250MG TABLET PO SCH (11:00)
[2019-11-07] MEDS ORDERED: POTASSIUM CHLORIDE INJ 40 MEQ in DEXT 5% WATER 250 ML IV NR (14:00)
[2019-11-07] MEDS ORDERED: PROT40 PO (16:09)
[2019-11-07] MEDS ORDERED: FURO20TA4 PO (16:09)
[2019-11-07] MEDS ORDERED: PROP10TA10 PO (16:09)
[2019-11-08] VITALS (8 sets, daily range): BP systolic 111–150; BP diastolic 52–85
[2019-11-08] MEDS: MORPHINE SULFATE 2 MG/ML CPJ (NOT FOR IM USE) IV PRN (04:28)
[2019-11-08] MEDS: PANTOPRAZOLE SODIUM 40 MG/VIAL IV SCH ×2 (09:17→18:53)
[2019-11-08] MEDS: FUROSEMIDE 40MG/4ML VIAL IVP SCH (09:18)
[2019-11-08] MEDS ORDERED: LACT10SO7 MT (14:36)
[2019-11-08] MEDS ORDERED: PROPOFOL 200MG/20ML VIAL IV ONE (16:57)
[2019-11-08] MEDS: MAGNESIUM OXIDE 400MG TABLET PO SCH (18:53)
[2019-11-08] MEDS: LEVOFLOXACIN 250MG TABLET PO SCH (18:53)
[2019-11-08] MEDS: SPIRONOLACTONE 25MG TABLET PO SCH (18:54)
[2019-11-08] MEDS: PROPRANOLOL HCL 10MG TABLET PO SCH ×2 (18:54→20:19)
== END 2019-11-08 21:09 | disposition home or self-care (01) | DRG 280 ==
LOC: ER 12:25 → 5EST 15:29 → EDBEDREQ 15:33 → EDBEDREQTM 15:33 → ENRESERV 11-04 12:14
PROVIDERS: ADMIT Internal Medicine; ATTEND Internal Medicine
PROC: 0DJ08ZZ Inspection of Upper Intestinal Tract, Via Natural or Artificial Opening Endoscopic (ICD-10-PCS; principal; 2019-11-08)
DX: K70.31 Alcoholic cirrhosis of liver with ascites (principal); J96.00 Acute respiratory failure, unspecified whether with hypoxia or hypercapnia; I85.11 Secondary esophageal varices with bleeding; E43 Unspecified severe protein-calorie malnutrition; J18.9 Pneumonia, unspecified organism; J90 Pleural effusion, not elsewhere classified; D69.6 Thrombocytopenia, unspecified; J45.909 Unspecified asthma, uncomplicated; D64.9 Anemia, unspecified; I87.2 Venous insufficiency (chronic) (peripheral); E78.5 Hyperlipidemia, unspecified; E83.42 Hypomagnesemia; E87.6 Hypokalemia; E87.70 Fluid overload, unspecified; F10.10 Alcohol abuse, uncomplicated; I11.9 Hypertensive heart disease without heart failure; I83.019 Varicose veins of right lower extremity with ulcer of unspecified site; J98.11 Atelectasis; K31.9 Disease of stomach and duodenum, unspecified; K42.9 Umbilical hernia without obstruction or gangrene; C34.90 Malignant neoplasm of unspecified part of unspecified bronchus or lung; R00.0 Tachycardia, unspecified; F12.10 Cannabis abuse, uncomplicated; I87.8 Other specified disorders of veins; F15.10 Other stimulant abuse, uncomplicated; K44.9 Diaphragmatic hernia without obstruction or gangrene; K45.8 Other specified abdominal hernia without obstruction or gangrene; K76.6 Portal hypertension; N43.3 Hydrocele, unspecified; Z79.899 Other long term (current) drug therapy; Z71.41 Alcohol abuse counseling and surveillance of alcoholic; Z71.51 Drug abuse counseling and surveillance of drug abuser
CPT/HCPCS: 36415; 71045; 74176; 80048; 80061; 80305; 81003; 83735; 84100; 84443; 84484; 86850; 86900; 86920; 93005; 93306; 93970; 94640; 96365; 96366; 96375; 97162; 97166; 99291; C9113; J0696; J1940; J1956; J2250; J2270; J2354; J2405; J2704; J3010; J3411; J3480; J3490; J7030; J7050; J7060; J7620

== ENCOUNTER 2019-11-26 12:37 | Inpatient (IN) | payer OTHER ==
[~2019-11-26] VITALS: Ht 172.7 cm; Wt 119.3 kg
[~2019-11-26 12:37] MED LIST changes: -IBUP-2030 PO; +LACT10SO7 MT
[2019-11-27] MEDS ORDERED: OCTREOTIDE ACETATE 50 MCG/ML 1ML IV STA (00:19)
[2019-11-27] MEDS ORDERED: SODIUM CHLORIDE 0.9% 1,000 ML IV ONE (00:19)
[2019-11-27] MEDS ORDERED: MORPHINE SULFATE 4 MG/ML CPJ (NOT FOR IM USE) IV STA (00:19)
[2019-11-27] MEDS ORDERED: OCTREOTIDE 1,000 MCG in SODIUM CHLORIDE 0.9% 100 ML IV STA (00:19)
[2019-11-27] MEDS ORDERED: ONDANSETRON HCL 4MG/2ML INJ IV STA (00:19)
[2019-11-27] MEDS ORDERED: PANTOPRAZOLE SODIUM 40 MG/VIAL IV STA (00:19)
[2019-11-27] MEDS ORDERED: VECURONIUM BROMIDE 10 MG/VIAL IV ONE (00:30)
[2019-11-27] MEDS ORDERED: ETOMIDATE 2MG/ML 10ML VIAL IV ONE (00:30)
[2019-11-27] MEDS ORDERED: MIDAZOLAM HCL 50 MG in DEXTROSE 5% WATER 40 ML IV ONE (00:30)
[2019-11-27] MEDS ORDERED: FENTANYL CITRATE/PF 500 MCG in SODIUM CHLORIDE 0.9% 40 ML IV PRN (00:45)
[2019-11-27] MEDS ORDERED: CEFTRIAXONE 1 G PREMIX 50 ML IV ONE (00:45)
[2019-11-27] MEDS ORDERED: MIDAZOLAM HCL 2 MG/2 ML VIAL IV ONE (00:45)
[2019-11-27] MEDS ORDERED: MIDAZOLAM HCL 2 MG/2 ML VIAL ONE (00:47)
[2019-11-27 00:55] LABS: INR 1.5; PARTIAL THROMBOPLASTIN TIME 29.6 sec (23.4-31.0); PROTHROMBIN TIME 15.2 sec (9.6-11.0)
[2019-11-27 01:10] LABS: BASOPHILS % 0.8 % (0.0-2.0); EOSINOPHILS % 5.6 % (0.0-5.0); LYMPHOCYTES % 17.1 % (20.0-50.0); MEAN CORPUSCULAR HEMOGLOBIN 25.3 pg (28.0-32.0); MEAN CORPUSCULAR VOLUME 81.4 fL (80.0-94.0); MEAN PLATELET VOLUME 10.9 fl (7.4-10.4); MONOCYTES % 11.9 % (2.0-8.0); NEUTROPHILS % 64.6 % (40.0-76.0); PLATELET 187 x1000/uL (130-400); RED BLOOD CELL COUNT 2.29 mill/uL (4.7-6.1); RED CELL DISTRIBUTION WIDTH 21.9 % (11.6-14.6)
[2019-11-27] MEDS ORDERED: SODIUM CHLORIDE 0.9% 1000ML BAG (SEPSIS BOLUS) IV ONE (01:15)
[2019-11-27] MEDS ORDERED: VANCOMYCIN 1 G PREMIX 200 ML IV ONE (01:15)
[2019-11-27 01:18] LABS: BG BASE EXCESS -3.8 mmol/L (-2.0-2.0); BG CARBOXYHEMOGLOBIN 0.3 % (0.5-1.5); BG DEOXYHEMOGLOBIN 7.7 % (0.0-5.0); BG FRACTION INSPIRED OXYGEN 60; BG HCO3 ACT 21.9 mmol/L (22.0-26.0); BG METHEMOGLOBIN 1.9 % (0.0-1.5); BG OXYGEN SATURATION 92.1 % (92.0-98.5); BG OXYHEMOGLOBIN 90.1 % (94.0-97.0); BG PCO2 43.2 mmHg (35.0-45.0); BG PH 7.323 (7.350-7.450); BG PO2 81.5 mmHg (75.0-100.0); BG SAMPLE SITE LEFT RADIAL; BG TIDAL VOLUME(mL) 500 mL; BG TOTAL HEMOGLOBIN 6.6 g/dL (12.0-18.0); BG VENT MODE VENT - A/C; BG VENT RATE 16 set
[2019-11-27 01:22] LABS: HEMOGLOBIN. 5.8 g/dL (14.0-18.0)
[2019-11-27 01:23] LABS: HEMATOCRIT. 18.6 % (42.0-52.0)
[2019-11-27 02:04] LABS: CHLORIDE 112 mEq/L (98-107)
[2019-11-27 02:05] LABS: ETHANOL BLOOD < 10 mg/dL
[2019-11-27] MEDS: FENTANYL CITRATE/PF 500 MCG in SODIUM CHLORIDE 0.9% 40 ML IV PRN (03:03)
[2019-11-27 03:45] LABS: CLARITY URINE TURBID (CLEAR); COLOR URINE DARK YELLOW (YELLOW); KETONES URINE NEGATIVE (NEGATIVE); LEUKOCYTE ESTERASE URINE TRACE (NEGATIVE); NITRITE URINE NEGATIVE (NEGATIVE); OCCULT BLOOD URINE 3+ (NEGATIVE); PH URINE 5.5 (4.5-8.0); PROTEIN URINE 2+ (NEGATIVE); SPECIFIC GRAVITY URINE 1.028 (1.005-1.030)
[2019-11-27 06:01] LABS: *AMPHETAMINES SCREEN URINE NEGATIVE (NEGATIVE); *BARBITURATES SCREEN URINE NEGATIVE (NEGATIVE); CANNABINOID URINE SCREEN NEGATIVE (NEGATIVE)
[2019-11-27 06:02] LABS: *BENZODIAZEPINES SCREEN URINE PRESUMTIVE POSITIVE (NEGATIVE); *COCAINE SCREEN URINE NEGATIVE (NEGATIVE); METHADONE URINE SCREEN NEGATIVE (NEGATIVE); OPIATES URINE SCREEN NEGATIVE (NEGATIVE); PHENCYCLIDINE URINE SCREEN NEGATIVE (NEGATIVE)
[2019-11-27 06:44] LABS: BASOPHILS % 0.8 % (0.0-2.0); EOSINOPHILS % 2.1 % (0.0-5.0); LYMPHOCYTES % 7.7 % (20.0-50.0); MEAN CORPUSCULAR HEMOGLOBIN 25.6 pg (28.0-32.0); MEAN CORPUSCULAR VOLUME 80.3 fL (80.0-94.0); MEAN PLATELET VOLUME 10.6 fl (7.4-10.4); MONOCYTES % 12.8 % (2.0-8.0); NEUTROPHILS % 76.6 % (40.0-76.0); PLATELET 87 x1000/uL (130-400); RED BLOOD CELL COUNT 2.47 mill/uL (4.7-6.1)
[2019-11-27 06:49] LABS: HEMOGLOBIN. 6.3 g/dL (14.0-18.0)
[2019-11-27 06:50] LABS: HEMATOCRIT. 19.8 % (42.0-52.0)
[2019-11-27] MEDS ORDERED: PIPERACILLIN/TAZ 3.375G PREMIX 50 ML IV SCH (07:00)
[2019-11-27] MEDS ORDERED: MIDAZOLAM 50 MG in DEXTROSE 5% WATER 50 ML IV PRN (08:30)
[2019-11-27] MEDS: PANTOPRAZOLE 80 MG in SODIUM CHLORIDE 0.9% 100 ML IV SCH (08:56)
[2019-11-27] MEDS ORDERED: PANTOPRAZOLE 80 MG in SODIUM CHLORIDE 0.9% 100 ML IV SCH (09:00)
[2019-11-27] MEDS: SODIUM CHLORIDE 0.9% 1,000 ML IV SCH (10:00)
[2019-11-27] MEDS ORDERED: CEFEPIME 2,000 MG in DEXT 5% WATER 100 ML IV NR (15:30)
[2019-11-27 16:25] LABS: BASOPHILS % 0.7 % (0.0-2.0); EOSINOPHILS % 5.9 % (0.0-5.0); LYMPHOCYTES % 7.4 % (20.0-50.0); MEAN CORPUSCULAR HEMOGLOBIN 26.2 pg (28.0-32.0); MEAN CORPUSCULAR VOLUME 80.8 fL (80.0-94.0); MEAN PLATELET VOLUME 10.1 fl (7.4-10.4); MONOCYTES % 10.1 % (2.0-8.0); NEUTROPHILS % 75.9 % (40.0-76.0); PLATELET 92 x1000/uL (130-400); RED BLOOD CELL COUNT 2.67 mill/uL (4.7-6.1); RED CELL DISTRIBUTION WIDTH 20.2 % (11.6-14.6)
[2019-11-27 16:28] LABS: CHLORIDE 115 mEq/L (98-107)
[2019-11-27 16:29] LABS: HEMATOCRIT. 21.5 % (42.0-52.0)
[2019-11-27 19:03] LABS: HEMATOCRIT 23.3 % (42.0-52.0); HEMOGLOBIN 7.4 g/dL (14.0-18.0)
[2019-11-28] VITALS (31 sets, daily range): BP systolic 118–136; BP diastolic 63–86
[2019-11-28] MEDS ORDERED: CEFEPIME 2,000 MG in DEXT 5% WATER 100 ML IV SCH (03:00)
[2019-11-28 04:48] LABS: MEAN CORPUSCULAR HEMOGLOBIN 26.4 pg (28.0-32.0); MEAN CORPUSCULAR VOLUME 80.5 fL (80.0-94.0); PLATELET 98 x1000/uL (130-400); RED BLOOD CELL COUNT 2.61 mill/uL (4.7-6.1); RED CELL DISTRIBUTION WIDTH 20.9 % (11.6-14.6)
[2019-11-28 04:51] LABS: HEMOGLOBIN. 6.9 g/dL (14.0-18.0); LYMPHOCYTES % 9.1 % (20.0-50.0); MONOCYTES % 9.1 % (2.0-8.0)
[2019-11-28 04:52] LABS: EOSINOPHILS % 9.2 % (0.0-5.0); NEUTROPHILS % 71.6 % (40.0-76.0)
[2019-11-28 04:53] LABS: CHLORIDE 115 mEq/L (98-107)
[2019-11-28] MEDS: FENTANYL CITRATE/PF 500 MCG in SODIUM CHLORIDE 0.9% 40 ML IV PRN ×2 (08:38→20:24)
[2019-11-28] MEDS: MIDAZOLAM 50 MG in DEXTROSE 5% WATER 50 ML IV PRN ×2 (08:39→16:47)
[2019-11-28] MEDS ORDERED: OCTREOTIDE 1,000 MCG in SODIUM CHLORIDE 0.9% 98 ML IV SCH (10:00)
[2019-11-28] MEDS: SODIUM CHLORIDE 0.9% 1,000 ML IV SCH ×4 (10:29→23:45)
[2019-11-28] MEDS: OCTREOTIDE 1,000 MCG in SODIUM CHLORIDE 0.9% 98 ML IV SCH ×2 (12:00→19:59)
[2019-11-28] MEDS: CEFEPIME 2,000 MG in DEXT 5% WATER 100 ML IV SCH ×2 (12:17→21:00)
[2019-11-28] MEDS: PANTOPRAZOLE 80 MG in SODIUM CHLORIDE 0.9% 100 ML IV SCH ×3 (12:34→16:47)
[2019-11-28 12:37] LABS: HEMATOCRIT 23.8 % (42.0-52.0); HEMOGLOBIN 7.6 g/dL (14.0-18.0)
[2019-11-28] MEDS: IPRATROPIUM/ALBUTEROL 0.5-3(2.5)MG/3ML NEB NEB PRN ×2 (13:13→21:05)
[2019-11-28 13:19] LABS: HEPATITIS B SURFACE ANTIGEN NEGATIVE
[2019-11-28 13:47] LABS: HEPATITIS A AB IGM NEGATIVE (NEGATIVE)
[2019-11-28] MEDS: VANCOMYCIN 1 G PREMIX 200 ML IV SCH ×2 (14:36→22:42)
[2019-11-28 20:34] LABS: HEMATOCRIT 21.6 % (42.0-52.0)
[2019-11-28 21:02] LABS: HEMOGLOBIN 6.9 g/dL (14.0-18.0)
[2019-11-29] VITALS (52 sets, daily range): BP systolic 107–144; BP diastolic 21–87
[2019-11-29] MEDS: PANTOPRAZOLE 80 MG in SODIUM CHLORIDE 0.9% 100 ML IV SCH ×3 (04:36→20:44)
[2019-11-29] MEDS: VANCOMYCIN 1 G PREMIX 200 ML IV SCH ×3 (05:09→22:38)
[2019-11-29 07:45] LABS: CHLORIDE 115 mEq/L (98-107)
[2019-11-29] MEDS: CEFEPIME 2,000 MG in DEXT 5% WATER 100 ML IV SCH ×2 (08:17→20:43)
[2019-11-29] MEDS: IPRATROPIUM/ALBUTEROL 0.5-3(2.5)MG/3ML NEB NEB PRN ×2 (08:22→17:38)
[2019-11-29] MEDS ORDERED: LIDOCAINE HCL 1% 20ML VIAL (Pyxis) INJ ONE (09:43)
[2019-11-29] MEDS ORDERED: SODIUM BICARBONATE 4% (2.4MEQ) 5ML VIAL IV ONE (09:43)
[2019-11-29] MEDS: FENTANYL CITRATE/PF 500 MCG in SODIUM CHLORIDE 0.9% 40 ML IV PRN ×3 (09:56→23:51)
[2019-11-29] MEDS ORDERED: PHYTONADIONE 10MG/ML AMP SUBCUT NR (10:00)
[2019-11-29] MEDS: SODIUM CHLORIDE 0.9% 1,000 ML IV SCH ×2 (10:58→20:43)
[2019-11-29] MEDS: OCTREOTIDE 1,000 MCG in SODIUM CHLORIDE 0.9% 98 ML IV SCH (11:07)
[2019-11-29 11:39] LABS: INR 1.4; PROTHROMBIN TIME 14.3 sec (9.6-11.0)
[2019-11-29] MEDS: MIDAZOLAM HCL 100 MG in DEXT 5% WATER 80 ML IV PRN (11:39)
[2019-11-29 11:41] LABS: BASOPHILS % 0.9 % (0.0-2.0); EOSINOPHILS % 11.4 % (0.0-5.0); HEMATOCRIT. 23.3 % (42.0-52.0); HEMOGLOBIN. 7.4 g/dL (14.0-18.0); LYMPHOCYTES % 7.5 % (20.0-50.0); MEAN CORPUSCULAR HEMOGLOBIN 26.6 pg (28.0-32.0); MEAN CORPUSCULAR VOLUME 83.6 fL (80.0-94.0); MEAN PLATELET VOLUME 10.6 fl (7.4-10.4); MONOCYTES % 13.2 % (2.0-8.0); PLATELET 84 x1000/uL (130-400); RED BLOOD CELL COUNT 2.78 mill/uL (4.7-6.1); RED CELL DISTRIBUTION WIDTH 20.8 % (11.6-14.6)
[2019-11-29 12:09] LABS: CHLORIDE 115 mEq/L (98-107)
[2019-11-29] MEDS: LACTULOSE 20G/30ML UDC PO SCH ×2 (15:28→22:38)
[2019-11-29 23:08] LABS: BG BASE EXCESS -2.9 mmol/L (-2.0-2.0); BG CARBOXYHEMOGLOBIN 0.2 % (0.5-1.5); BG DEOXYHEMOGLOBIN 1.3 % (0.0-5.0); BG FRACTION INSPIRED OXYGEN 50; BG HCO3 ACT 21.1 mmol/L (22.0-26.0); BG METHEMOGLOBIN 0.3 % (0.0-1.5); BG OXYGEN SATURATION 98.7 % (92.0-98.5); BG OXYHEMOGLOBIN 98.2 % (94.0-97.0); BG PCO2 33.4 mmHg (35.0-45.0); BG PH 7.418 (7.350-7.450); BG PO2 155.9 mmHg (75.0-100.0); BG SAMPLE SITE RIGHT RADIAL; BG TIDAL VOLUME(mL) 550 mL; BG TOTAL HEMOGLOBIN 8.7 g/dL (12.0-18.0); BG VENT MODE 18; BG VENT RATE 18 set
[2019-11-29 23:49] LABS: HEMATOCRIT 24.3 % (42.0-52.0); HEMOGLOBIN 7.8 g/dL (14.0-18.0)
[2019-11-30] VITALS (93 sets, daily range): BP systolic 90–133; BP diastolic 51–85
[2019-11-30] MEDS: PANTOPRAZOLE 80 MG in SODIUM CHLORIDE 0.9% 100 ML IV SCH (03:01)
[2019-11-30] MEDS: SODIUM CHLORIDE 0.9% 1,000 ML IV SCH ×3 (03:01→15:29)
[2019-11-30] MEDS: MIDAZOLAM HCL 100 MG in DEXT 5% WATER 80 ML IV PRN (03:01)
[2019-11-30] MEDS ORDERED: PHYTONADIONE 10MG/ML AMP SUBCUT NR (05:00)
[2019-11-30] MEDS: VANCOMYCIN 1 G PREMIX 200 ML IV SCH ×3 (05:32→22:57)
[2019-11-30] MEDS: LACTULOSE 20G/30ML UDC PO SCH ×2 (05:32→17:55)
[2019-11-30 06:13] LABS: BASOPHILS % 1.1 % (0.0-2.0); EOSINOPHILS % 13.6 % (0.0-5.0); HEMATOCRIT. 28.3 % (42.0-52.0); HEMOGLOBIN. 9.1 g/dL (14.0-18.0); LYMPHOCYTES % 9.4 % (20.0-50.0); MEAN CORPUSCULAR HEMOGLOBIN 27.5 pg (28.0-32.0); MEAN CORPUSCULAR VOLUME 85.3 fL (80.0-94.0); MEAN PLATELET VOLUME 10.3 fl (7.4-10.4); MONOCYTES % 13.2 % (2.0-8.0); NEUTROPHILS % 62.7 % (40.0-76.0); PLATELET 80 x1000/uL (130-400); RED BLOOD CELL COUNT 3.32 mill/uL (4.7-6.1); RED CELL DISTRIBUTION WIDTH 21.1 % (11.6-14.6)
[2019-11-30 06:21] LABS: CHLORIDE 116 mEq/L (98-107)
[2019-11-30] MEDS: OCTREOTIDE 1,000 MCG in SODIUM CHLORIDE 0.9% 98 ML IV SCH (07:40)
[2019-11-30] MEDS: CEFEPIME 2,000 MG in DEXT 5% WATER 100 ML IV SCH ×2 (08:19→21:29)
[2019-11-30] MEDS ORDERED: SODIUM BICARBONATE 4% (2.4MEQ) 5ML VIAL IV ONE (08:22)
[2019-11-30] MEDS ORDERED: LIDOCAINE HCL 1% 20ML VIAL (Pyxis) INJ ONE (08:22)
[2019-11-30] MEDS: FENTANYL CITRATE/PF 500 MCG in SODIUM CHLORIDE 0.9% 40 ML IV PRN (09:27)
[2019-11-30] MEDS: PANTOPRAZOLE SODIUM 40 MG/VIAL IV SCH ×2 (10:55→21:32)
[2019-11-30] MEDS: RIFAXIMIN 550 MG TABLET NG SCH ×2 (10:56→21:54)
[2019-11-30] MEDS: PROPRANOLOL HCL 10MG TABLET PO SCH ×3 (10:56→22:00)
[2019-11-30] MEDS: IPRATROPIUM/ALBUTEROL 0.5-3(2.5)MG/3ML NEB NEB PRN (12:04)
[2019-11-30] MEDS ORDERED: ALBUMIN HUMAN 25GM/100ML (25%) IV NR (15:30)
[2019-11-30] MEDS ORDERED: FUROSEMIDE 20MG/2ML VIAL IVP NR (15:30)
[2019-11-30] MEDS ORDERED: HALOPERIDOL LACTATE 5MG/ML VIAL IM PRN (15:30)
[2019-11-30] MEDS ORDERED: FENTANYL CITRATE/PF 500 MCG in SODIUM CHLORIDE 0.9% 40 ML IV PRN (17:15)
[2019-12-01] VITALS (90 sets, daily range): BP systolic 86–152; BP diastolic 54–103
[2019-12-01] MEDS: MIDAZOLAM HCL 100 MG in DEXT 5% WATER 80 ML IV PRN (00:47)
[2019-12-01] MEDS: SODIUM CHLORIDE 0.9% 1,000 ML IV SCH (04:49)
[2019-12-01] MEDS: PROPRANOLOL HCL 10MG TABLET PO SCH ×3 (06:00→22:45)
[2019-12-01] MEDS: VANCOMYCIN 1 G PREMIX 200 ML IV SCH ×3 (06:04→18:10)
[2019-12-01] MEDS: LACTULOSE 20G/30ML UDC PO SCH ×3 (06:05→22:45)
[2019-12-01 07:44] LABS: EOSINOPHILS % 14.5 % (0.0-5.0); HEMATOCRIT. 27.4 % (42.0-52.0); HEMOGLOBIN. 8.7 g/dL (14.0-18.0); LYMPHOCYTES % 7.1 % (20.0-50.0); MEAN CORPUSCULAR HEMOGLOBIN 26.8 pg (28.0-32.0); MEAN CORPUSCULAR VOLUME 84.8 fL (80.0-94.0); MEAN PLATELET VOLUME 10.5 fl (7.4-10.4); MONOCYTES % 11.5 % (2.0-8.0); NEUTROPHILS % 65.9 % (40.0-76.0); PLATELET 89 x1000/uL (130-400); RED BLOOD CELL COUNT 3.23 mill/uL (4.7-6.1); RED CELL DISTRIBUTION WIDTH 21.9 % (11.6-14.6)
[2019-12-01 07:45] LABS: CHLORIDE 116 mEq/L (98-107)
[2019-12-01] MEDS: PANTOPRAZOLE SODIUM 40 MG/VIAL IV SCH ×2 (09:34→20:46)
[2019-12-01] MEDS: RIFAXIMIN 550 MG TABLET NG SCH ×2 (09:34→20:47)
[2019-12-01] MEDS: CEFEPIME 2,000 MG in DEXT 5% WATER 100 ML IV SCH ×2 (09:34→20:35)
[2019-12-01] MEDS ORDERED: POTASSIUM CHLORIDE INJ 40 MEQ in DEXT 5% WATER 250 ML IV NR (10:30)
[2019-12-01] MEDS: IPRATROPIUM/ALBUTEROL 0.5-3(2.5)MG/3ML NEB NEB PRN (14:04)
[2019-12-02] VITALS (51 sets, daily range): BP systolic 85–173; BP diastolic 42–107
[2019-12-02] MEDS: VANCOMYCIN 1 G PREMIX 200 ML IV SCH ×2 (01:31→17:00)
[2019-12-02] MEDS: SODIUM CHLORIDE 0.9% 1,000 ML IV SCH ×3 (04:28→22:41)
[2019-12-02] MEDS: LACTULOSE 20G/30ML UDC PO SCH ×3 (06:21→20:38)
[2019-12-02] MEDS: PROPRANOLOL HCL 10MG TABLET PO SCH ×3 (06:21→20:39)
[2019-12-02 06:24] LABS: CHLORIDE 115 mEq/L (98-107)
[2019-12-02 06:25] LABS: HEMATOCRIT. 31.4 % (42.0-52.0); MEAN CORPUSCULAR HEMOGLOBIN 27.2 pg (28.0-32.0); MEAN CORPUSCULAR VOLUME 85.2 fL (80.0-94.0); MEAN PLATELET VOLUME 11.2 fl (7.4-10.4); PLATELET 60 x1000/uL (130-400); RED BLOOD CELL COUNT 3.69 mill/uL (4.7-6.1); RED CELL DISTRIBUTION WIDTH 21.7 % (11.6-14.6)
[2019-12-02 06:32] LABS: PHOSPHORUS 2.6 mg/dL (2.5-4.9)
[2019-12-02 06:48] LABS: PLATELET ESTIMATE SLIGHTLY DECREASED
[2019-12-02] MEDS: RIFAXIMIN 550 MG TABLET NG SCH ×2 (08:12→20:39)
[2019-12-02] MEDS: PANTOPRAZOLE SODIUM 40 MG/VIAL IV SCH ×2 (08:12→20:39)
[2019-12-02] MEDS: CEFEPIME 2,000 MG in DEXT 5% WATER 100 ML IV SCH ×2 (08:12→20:38)
[2019-12-02] MEDS: IPRATROPIUM/ALBUTEROL 0.5-3(2.5)MG/3ML NEB NEB PRN ×3 (08:26→15:55)
[2019-12-02] MEDS ORDERED: MAGNESIUM 2 G PREMIX 50 ML IV NR (10:00)
[2019-12-02] MEDS ORDERED: POTASSIUM CHLORIDE INJ 40 MEQ in DEXT 5% WATER 250 ML IV NR (10:00)
[2019-12-02] MEDS: LORAZEPAM 2MG/ML CPJ IV PRN (15:44)
[2019-12-02] MEDS: PROPOFOL 10MG/ML 100ML 100 ML IV PRN ×2 (16:53→22:31)
[2019-12-03] VITALS (47 sets, daily range): BP systolic 83–129; BP diastolic 43–111
[2019-12-03] MEDS: VANCOMYCIN 1 G PREMIX 200 ML IV SCH ×2 (06:18→17:24)
[2019-12-03] MEDS: LACTULOSE 20G/30ML UDC PO SCH ×3 (06:19→21:39)
[2019-12-03] MEDS: PROPRANOLOL HCL 10MG TABLET PO SCH ×3 (06:20→21:39)
[2019-12-03] MEDS: PROPOFOL 10MG/ML 100ML 100 ML IV PRN (06:21)
[2019-12-03] MEDS: PANTOPRAZOLE SODIUM 40 MG/VIAL IV SCH ×2 (08:18→21:38)
[2019-12-03] MEDS: CEFEPIME 2,000 MG in DEXT 5% WATER 100 ML IV SCH ×2 (08:19→21:38)
[2019-12-03] MEDS: RIFAXIMIN 550 MG TABLET NG SCH ×2 (08:19→21:38)
[2019-12-03] MEDS: IPRATROPIUM/ALBUTEROL 0.5-3(2.5)MG/3ML NEB NEB PRN ×2 (09:39→13:36)
[2019-12-03 13:16] LABS: INR 1.4; PROTHROMBIN TIME 14.3 sec (9.6-11.0)
[2019-12-03 13:45] LABS: BG BASE EXCESS -3.8 mmol/L (-2.0-2.0); BG CARBOXYHEMOGLOBIN 0.3 % (0.5-1.5); BG DEOXYHEMOGLOBIN 4.2 % (0.0-5.0); BG FRACTION INSPIRED OXYGEN 40; BG HCO3 ACT 20.8 mmol/L (22.0-26.0); BG METHEMOGLOBIN 0.3 % (0.0-1.5); BG OXYGEN SATURATION 95.8 % (92.0-98.5); BG OXYHEMOGLOBIN 95.2 % (94.0-97.0); BG PCO2 35.9 mmHg (35.0-45.0); BG PO2 85.6 mmHg (75.0-100.0); BG SAMPLE SITE RIGHT RADIAL; BG TIDAL VOLUME(mL) 550 mL; BG TOTAL HEMOGLOBIN 10.2 g/dL (12.0-18.0); BG VENT MODE VENT - A/C; BG VENT RATE 12 set
[2019-12-03 17:16] LABS: BG CARBOXYHEMOGLOBIN 0.1 % (0.5-1.5); BG DEOXYHEMOGLOBIN 3.3 % (0.0-5.0); BG FRACTION INSPIRED OXYGEN 40; BG HCO3 ACT 19.8 mmol/L (22.0-26.0); BG METHEMOGLOBIN 0.2 % (0.0-1.5); BG OXYGEN SATURATION 96.7 % (92.0-98.5); BG OXYHEMOGLOBIN 96.4 % (94.0-97.0); BG PH 7.359 (7.350-7.450); BG PO2 94.9 mmHg (75.0-100.0); BG PRESSURE SUPPORT 8; BG SAMPLE SITE RIGHT RADIAL; BG TOTAL HEMOGLOBIN 10.1 g/dL (12.0-18.0); BG VENT MODE VENT - CPAP
[2019-12-04] VITALS (42 sets, daily range): BP systolic 99–195; BP diastolic 44–82
[2019-12-04] MEDS: PROPOFOL 10MG/ML 100ML 100 ML IV PRN ×2 (01:39→06:14)
[2019-12-04] MEDS: LACTULOSE 20G/30ML UDC PO SCH ×3 (06:20→22:00)
[2019-12-04] MEDS: VANCOMYCIN 1 G PREMIX 200 ML IV SCH ×2 (06:20→17:18)
[2019-12-04] MEDS: PROPRANOLOL HCL 10MG TABLET PO SCH ×3 (06:20→22:00)
[2019-12-04] MEDS: IPRATROPIUM/ALBUTEROL 0.5-3(2.5)MG/3ML NEB NEB PRN ×3 (08:45→22:34)
[2019-12-04] MEDS: CEFEPIME 2,000 MG in DEXT 5% WATER 100 ML IV SCH ×2 (10:03→23:13)
[2019-12-04] MEDS: RIFAXIMIN 550 MG TABLET NG SCH ×2 (10:03→21:00)
[2019-12-04] MEDS: PANTOPRAZOLE SODIUM 40 MG/VIAL IV SCH ×2 (10:03→21:00)
[2019-12-04 10:56] LABS: HEMATOCRIT 28.9 % (42.0-52.0); HEMOGLOBIN 9.4 g/dL (14.0-18.0); MEAN CORPUSCULAR HEMOGLOBIN 27.8 pg (28.0-32.0); MEAN CORPUSCULAR VOLUME 85.2 fL (80.0-94.0); PLATELET 111 x1000/uL (130-400); RED BLOOD CELL COUNT 3.39 mill/uL (4.7-6.1); RED CELL DISTRIBUTION WIDTH 22.1 % (11.6-14.6)
[2019-12-04] MEDS: SODIUM CHLORIDE 0.9% 1,000 ML IV SCH (15:00)
[2019-12-04 15:13] LABS: BG BASE EXCESS -6.1 mmol/L (-2.0-2.0); BG CARBOXYHEMOGLOBIN 0.2 % (0.5-1.5); BG DEOXYHEMOGLOBIN 4.2 % (0.0-5.0); BG FRACTION INSPIRED OXYGEN 40; BG HCO3 ACT 18.9 mmol/L (22.0-26.0); BG METHEMOGLOBIN 0.2 % (0.0-1.5); BG OXYGEN SATURATION 95.8 % (92.0-98.5); BG OXYHEMOGLOBIN 95.4 % (94.0-97.0); BG PCO2 35.5 mmHg (35.0-45.0); BG PH 7.344 (7.350-7.450); BG PO2 84.9 mmHg (75.0-100.0); BG PRESSURE SUPPORT 8; BG SAMPLE SITE RIGHT RADIAL; BG TOTAL HEMOGLOBIN 9.7 g/dL (12.0-18.0); BG VENT MODE VENT - CPAP
[2019-12-05] VITALS (28 sets, daily range): BP systolic 98–138; BP diastolic 55–80
[2019-12-05] MEDS: IPRATROPIUM/ALBUTEROL 0.5-3(2.5)MG/3ML NEB NEB PRN (01:54)
[2019-12-05] MEDS ORDERED: SODIUM BICARBONATE 4% (2.4MEQ) 5ML VIAL IV ONE (12:06)
[2019-12-05] MEDS ORDERED: LIDOCAINE HCL 1% 20ML VIAL (Pyxis) INJ ONE (12:06)
[2019-12-05] MEDS: LACTULOSE 20G/30ML UDC PO SCH ×2 (14:00→22:46)
[2019-12-05] MEDS: PANTOPRAZOLE SODIUM 40 MG/VIAL IV SCH ×2 (17:45→21:06)
[2019-12-05] MEDS: RIFAXIMIN 550 MG TABLET NG SCH ×2 (17:45→21:06)
[2019-12-05] MEDS: PROPRANOLOL HCL 10MG TABLET PO SCH ×2 (17:46→22:46)
[2019-12-06] VITALS (18 sets, daily range): BP systolic 108–149; BP diastolic 57–94
[2019-12-06] MEDS: PROPRANOLOL HCL 10MG TABLET PO SCH ×3 (05:21→21:37)
[2019-12-06] MEDS: LACTULOSE 20G/30ML UDC PO SCH ×3 (05:21→21:37)
[2019-12-06] MEDS: PANTOPRAZOLE SODIUM 40 MG/VIAL IV SCH ×2 (08:38→21:36)
[2019-12-06] MEDS: RIFAXIMIN 550 MG TABLET NG SCH ×2 (08:38→21:36)
[2019-12-06] MEDS: LORAZEPAM 2MG/ML CPJ IV PRN (21:37)
[2019-12-07] VITALS (7 sets, daily range): BP systolic 120–148; BP diastolic 57–84
[2019-12-07] MEDS: LACTULOSE 20G/30ML UDC PO SCH ×3 (05:44→20:43)
[2019-12-07] MEDS: PROPRANOLOL HCL 10MG TABLET PO SCH ×3 (05:45→20:43)
[2019-12-07] MEDS: PANTOPRAZOLE SODIUM 40 MG/VIAL IV SCH ×3 (09:00→20:43)
[2019-12-07] MEDS: RIFAXIMIN 550 MG TABLET NG SCH ×2 (09:33→20:43)
[2019-12-07] MEDS ORDERED: ALBUMIN HUMAN 25GM/100ML (25%) IV NR (12:30)
[2019-12-07 18:06] LABS: CHLORIDE 111 mEq/L (98-107)
[2019-12-08 00:05] VITALS: BP 125/88
[2019-12-08 04:00] VITALS: BP 127/83
[2019-12-08] MEDS: LACTULOSE 20G/30ML UDC PO SCH ×4 (05:42→21:53)
[2019-12-08] MEDS: PROPRANOLOL HCL 10MG TABLET PO SCH ×3 (05:43→21:52)
[2019-12-08 07:12] LABS: BASOPHILS % 0.8 % (0.0-2.0); EOSINOPHILS % 9.5 % (0.0-5.0); HEMATOCRIT. 29.2 % (42.0-52.0); HEMOGLOBIN. 9.4 g/dL (14.0-18.0); LYMPHOCYTES % 8.4 % (20.0-50.0); MEAN CORPUSCULAR HEMOGLOBIN 27.5 pg (28.0-32.0); MEAN PLATELET VOLUME 10.2 fl (7.4-10.4); MONOCYTES % 8.6 % (2.0-8.0); NEUTROPHILS % 72.7 % (40.0-76.0); PLATELET 129 x1000/uL (130-400); RED BLOOD CELL COUNT 3.43 mill/uL (4.7-6.1); RED CELL DISTRIBUTION WIDTH 22.3 % (11.6-14.6)
[2019-12-08 08:00] VITALS: BP 117/55
[2019-12-08] MEDS: PANTOPRAZOLE SODIUM 40 MG/VIAL IV SCH ×2 (09:30→21:53)
[2019-12-08] MEDS: RIFAXIMIN 550 MG TABLET NG SCH ×2 (09:30→21:52)
[2019-12-08 12:00] VITALS: BP 130/70
[2019-12-08 16:00] VITALS: BP 139/75
[2019-12-08] MEDS: SODIUM CHLORIDE 0.9% 1,000 ML IV SCH (16:19)
[2019-12-08] MEDS: ACETAMINOPHEN 325MG TABLET PO PRN (17:48)
[2019-12-08 20:00] VITALS: BP 151/75
[2019-12-09] VITALS (7 sets, daily range): BP systolic 106–140; BP diastolic 51–80
[2019-12-09] MEDS: LACTULOSE 20G/30ML UDC PO SCH ×3 (05:30→20:32)
[2019-12-09] MEDS: PROPRANOLOL HCL 10MG TABLET PO SCH ×3 (05:31→20:32)
[2019-12-09] MEDS: SODIUM CHLORIDE 0.9% 1,000 ML IV SCH ×2 (05:47→20:37)
[2019-12-09] MEDS: ACETAMINOPHEN 325MG TABLET PO PRN (05:52)
[2019-12-09 06:52] LABS: BASOPHILS % 0.8 % (0.0-2.0); EOSINOPHILS % 8.9 % (0.0-5.0); HEMATOCRIT. 25.5 % (42.0-52.0); HEMOGLOBIN. 8.5 g/dL (14.0-18.0); LYMPHOCYTES % 8.8 % (20.0-50.0); MEAN CORPUSCULAR HEMOGLOBIN 27.9 pg (28.0-32.0); MEAN CORPUSCULAR VOLUME 83.2 fL (80.0-94.0); MEAN PLATELET VOLUME 10.7 fl (7.4-10.4); MONOCYTES % 8.4 % (2.0-8.0); NEUTROPHILS % 73.1 % (40.0-76.0); PLATELET 114 x1000/uL (130-400); RED BLOOD CELL COUNT 3.06 mill/uL (4.7-6.1); RED CELL DISTRIBUTION WIDTH 22.4 % (11.6-14.6)
[2019-12-09] MEDS: PANTOPRAZOLE SODIUM 40 MG/VIAL IV SCH ×2 (09:10→20:32)
[2019-12-09] MEDS: RIFAXIMIN 550 MG TABLET NG SCH ×2 (09:23→20:32)
[2019-12-09] MEDS ORDERED: ALBUMIN HUMAN 25GM/100ML (25%) IV NR (15:00)
[2019-12-10 04:00] VITALS: BP 143/84
[2019-12-10] MEDS: PROPRANOLOL HCL 10MG TABLET PO SCH ×2 (05:37→14:00)
[2019-12-10] MEDS: ACETAMINOPHEN 325MG TABLET PO PRN (05:37)
[2019-12-10] MEDS: LACTULOSE 20G/30ML UDC PO SCH ×2 (05:37→14:00)
[2019-12-10 07:33] LABS: EOSINOPHILS % 9.2 % (0.0-5.0); HEMATOCRIT. 26.9 % (42.0-52.0); HEMOGLOBIN. 8.9 g/dL (14.0-18.0); LYMPHOCYTES % 9.9 % (20.0-50.0); MEAN CORPUSCULAR HEMOGLOBIN 27.9 pg (28.0-32.0); MEAN CORPUSCULAR VOLUME 84.6 fL (80.0-94.0); MEAN PLATELET VOLUME 10.6 fl (7.4-10.4); MONOCYTES % 9.7 % (2.0-8.0); NEUTROPHILS % 70.2 % (40.0-76.0); PLATELET 127 x1000/uL (130-400); RED BLOOD CELL COUNT 3.18 mill/uL (4.7-6.1); RED CELL DISTRIBUTION WIDTH 22.2 % (11.6-14.6)
[2019-12-10 08:00] VITALS: BP 115/70
[2019-12-10 08:09] LABS: CHLORIDE 114 mEq/L (98-107)
[2019-12-10 08:16] LABS: PHOSPHORUS 3.7 mg/dL (2.5-4.9)
[2019-12-10 08:18] LABS: CREATINE KINASE 99 IU/L (39-308)
[2019-12-10] MEDS: SODIUM CHLORIDE 0.9% 1,000 ML IV SCH (09:59)
[2019-12-10] MEDS: RIFAXIMIN 550 MG TABLET NG SCH (09:59)
[2019-12-10] MEDS: PANTOPRAZOLE SODIUM 40 MG/VIAL IV SCH (09:59)
[2019-12-10 12:00] VITALS: BP 148/68
[2019-12-10] MEDS ORDERED: ALBUMIN HUMAN 25GM/100ML (25%) IV NR (13:30)
[2019-12-10 16:00] VITALS: BP 99/79
[2019-12-10 19:58] VITALS: BP 143/88
[2019-12-10 20:34] VITALS: BP 143/88
== END 2019-12-10 21:10 | disposition home health service (06) | DRG 130 ==
LOC: ER 12:37 → EDBEDREQ 11-27 02:02 → EDBEDREQTM 11-27 02:02 → ENRESERV 11-28 07:39 → MICUSO 11-28 10:00 → 7WST 12-06 11:26
PROVIDERS: ADMIT Internal Medicine; ATTEND Internal Medicine
PROC: 5A1955Z Respiratory Ventilation, Greater than 96 Consecutive Hours (ICD-10-PCS; principal; 2019-11-27)
PROC: 0BH17EZ Insertion of Endotracheal Airway into Trachea, Via Natural or Artificial Opening (ICD-10-PCS; 2019-11-27)
PROC: 02HV33Z Insertion of Infusion Device into Superior Vena Cava, Percutaneous Approach (ICD-10-PCS; 2019-11-29)
PROC: B548ZZA Ultrasonography of Superior Vena Cava, Guidance (ICD-10-PCS; 2019-11-29)
PROC: 0W9G3ZZ Drainage of Peritoneal Cavity, Percutaneous Approach (ICD-10-PCS; 2019-11-30)
PROC: 0W9G3ZZ Drainage of Peritoneal Cavity, Percutaneous Approach (ICD-10-PCS; 2019-12-05)
DX: J69.0 Pneumonitis due to inhalation of food and vomit (principal); R57.8 Other shock; E43 Unspecified severe protein-calorie malnutrition; D69.59 Other secondary thrombocytopenia; R34 Anuria and oliguria; N17.9 Acute kidney failure, unspecified; I95.9 Hypotension, unspecified; D62 Acute posthemorrhagic anemia; E87.8 Other disorders of electrolyte and fluid balance, not elsewhere classified; E88.09 Other disorders of plasma-protein metabolism, not elsewhere classified; K72.90 Hepatic failure, unspecified without coma; J96.00 Acute respiratory failure, unspecified whether with hypoxia or hypercapnia; K76.6 Portal hypertension; K70.31 Alcoholic cirrhosis of liver with ascites; Z99.11 Dependence on respirator [ventilator] status; K91.89 Other postprocedural complications and disorders of digestive system; Y84.8 Other medical procedures as the cause of abnormal reaction of the patient, or of later complication, without mention of misadventure at the time of the procedure; Y92.238 Other place in hospital as the place of occurrence of the external cause; K92.2 Gastrointestinal hemorrhage, unspecified; L97.919 Non-pressure chronic ulcer of unspecified part of right lower leg with unspecified severity; I10 Essential (primary) hypertension; E87.6 Hypokalemia; K31.89 Other diseases of stomach and duodenum; K44.9 Diaphragmatic hernia without obstruction or gangrene; I87.8 Other specified disorders of veins; F10.10 Alcohol abuse, uncomplicated; J45.909 Unspecified asthma, uncomplicated; K42.9 Umbilical hernia without obstruction or gangrene; Z82.49 Family history of ischemic heart disease and other diseases of the circulatory system; Z79.899 Other long term (current) drug therapy; Z78.1 Physical restraint status; Z68.41 Body mass index [BMI] 40.0-44.9, adult
CPT/HCPCS: 36415; 36600; 49083; 71045; 76705; 76770; 76857; 76937; 80048; 80053; 80076; 80202; 82040; 82140; 82375; 82550; 82805; 83735; 84100; 84145; 84478; 85014; 85018; 85025; 85027; 86705; 86709; 86803; 86850; 86900; 86920; 87070; 87340; 92610; 93005; 93970; 94002; 94003; 94640; 97162; 97166; 97530; 99291; C1725; C1769; C9113; J0692; J0696; J1630; J1940; J2060; J2250; J2354; J2405; J2704; J3010; J3370; J3430; J3475; J3480; J3490; J7030; J7040; J7050; J7060; J7620; P9016; P9047; A4315

== ENCOUNTER 2020-01-16 13:17 | Inpatient (IN) | payer OTHER ==
[~2020-01-16] VITALS: Ht 167.6 cm; Wt 93.4 kg
[~2020-01-16 13:17] MED LIST changes: -METO25TA6 PO
[2020-01-16 15:20] LABS: BASOPHILS % 0.6 % (0.0-2.0); EOSINOPHILS % 5.6 % (0.0-5.0); HEMATOCRIT. 29.2 % (42.0-52.0); LYMPHOCYTES % 10.7 % (20.0-50.0); MEAN CORPUSCULAR VOLUME 93.5 fL (80.0-94.0); MEAN PLATELET VOLUME 11.3 fl (7.4-10.4); MONOCYTES % 10.4 % (2.0-8.0); NEUTROPHILS % 72.7 % (40.0-76.0); PLATELET 96 x1000/uL (130-400); RED BLOOD CELL COUNT 3.12 mill/uL (4.7-6.1); RED CELL DISTRIBUTION WIDTH 22.2 % (11.6-14.6)
[2020-01-16 15:23] LABS: CHLORIDE 107 mEq/L (98-107)
[2020-01-16 15:31] LABS: INR 1.1; PROTHROMBIN TIME 12.3 sec (9.6-11.0)
[2020-01-16 15:59] LABS: PLATELET ESTIMATE DECREASED
[2020-01-16 16:00] LABS: COLOR URINE DARK YELLOW (YELLOW)
[2020-01-16 16:01] LABS: CLARITY URINE CLOUDY (CLEAR); KETONES URINE TRACE (NEGATIVE); LEUKOCYTE ESTERASE URINE TRACE (NEGATIVE); NITRITE URINE NEGATIVE (NEGATIVE); OCCULT BLOOD URINE 2+ (NEGATIVE); PH URINE 5.5 (4.5-8.0); PROTEIN URINE 1+ (NEGATIVE); SPECIFIC GRAVITY URINE 1.022 (1.005-1.030)
[2020-01-16] MEDS ORDERED: ONDANSETRON HCL 4MG/2ML INJ IV STA (19:00)
[2020-01-16] MEDS ORDERED: SODIUM CHLORIDE 0.9% 1,000 ML IV ONE (19:00)
[2020-01-16] MEDS ORDERED: MORPHINE SULFATE 2 MG/ML CPJ (NOT FOR IM USE) IV PRN (21:15)
[2020-01-16] MEDS ORDERED: ONDANSETRON HCL 4MG/2ML INJ IV PRN (21:15)
[2020-01-16] MEDS ORDERED: ACETAMINOPHEN 325MG TABLET PO PRN (21:15)
[2020-01-16] MEDS ORDERED: FOLIC ACID 1 MG, THIAMINE HCL 100 MG, MVI, ADULT NO.1 10 ML in DEXTROSE 5% WATER 1,000 ML IV ONE ×4 (22:30)
[2020-01-16] MEDS ORDERED: IOHEXOL-300 100 ML BOTTLE ONE (23:15)
[2020-01-17 00:42] VITALS: BP 132/69
[2020-01-17 04:00] VITALS: BP 131/66
[2020-01-17 07:23] LABS: BASOPHILS % 0.5 % (0.0-2.0); EOSINOPHILS % 5.8 % (0.0-5.0); HEMATOCRIT. 25.1 % (42.0-52.0); HEMOGLOBIN. 8.6 g/dL (14.0-18.0); LYMPHOCYTES % 11.2 % (20.0-50.0); MEAN CORPUSCULAR HEMOGLOBIN 31.7 pg (28.0-32.0); MEAN CORPUSCULAR VOLUME 92.8 fL (80.0-94.0); MEAN PLATELET VOLUME 11.5 fl (7.4-10.4); MONOCYTES % 10.8 % (2.0-8.0); NEUTROPHILS % 71.7 % (40.0-76.0); PLATELET 80 x1000/uL (130-400); RED CELL DISTRIBUTION WIDTH 21.9 % (11.6-14.6)
[2020-01-17 08:00] VITALS: BP 118/71
[2020-01-17 08:07] LABS: CHLORIDE 106 mEq/L (98-107)
[2020-01-17] MEDS: FERROUS SULFATE 325MG TABLET PO SCH ×3 (09:07→17:38)
[2020-01-17] MEDS: DOCUSATE SODIUM 250MG CAPSULE PO SCH (09:07)
[2020-01-17] MEDS: OMEPRAZOLE 20MG CAPSULE EXTENDED RELEASE PO SCH (09:07)
[2020-01-17] MEDS ORDERED: INFLUENZA VIRUS VACCINE(AFLURIA) 0.5ML SYR IM ONE (10:00)
[2020-01-17] MEDS: DEXTROSE 5% WATER 1,000 ML IV SCH ×2 (10:31→20:00)
[2020-01-17 12:00] VITALS: BP 128/73
[2020-01-17 16:00] VITALS: BP_SYST 127; BP_SYST 132; BP_SYST 136; BP_DIAS 53; BP_DIAS 73; BP_DIAS 79
[2020-01-17 20:00] VITALS: BP 157/86
[2020-01-17 20:44] LABS: *AMPHETAMINES SCREEN URINE NEGATIVE (NEGATIVE); *BARBITURATES SCREEN URINE NEGATIVE (NEGATIVE); *BENZODIAZEPINES SCREEN URINE NEGATIVE (NEGATIVE); *COCAINE SCREEN URINE NEGATIVE (NEGATIVE); METHADONE URINE SCREEN NEGATIVE (NEGATIVE); OPIATES URINE SCREEN NEGATIVE (NEGATIVE)
[2020-01-17 20:45] LABS: CANNABINOID URINE SCREEN NEGATIVE (NEGATIVE); PHENCYCLIDINE URINE SCREEN NEGATIVE (NEGATIVE)
[2020-01-17] MEDS: PROPRANOLOL HCL 10MG TABLET PO SCH (21:06)
[2020-01-18] VITALS: BP 149/79
[2020-01-18] MEDS: FOLIC ACID 1 MG, THIAMINE HCL 100 MG, MVI, ADULT NO.1 10 ML in DEXTROSE 5% WATER 1,000 ML IV SCH ×4 (02:14)
[2020-01-18 04:00] VITALS: BP 115/64
[2020-01-18] MEDS: DEXTROSE 5% WATER 1,000 ML IV SCH ×2 (06:44→16:15)
[2020-01-18 08:00] VITALS: BP_SYST 125; BP_SYST 126; BP_DIAS 70; BP_DIAS 73; BP_DIAS 74
[2020-01-18] MEDS: OMEPRAZOLE 20MG CAPSULE EXTENDED RELEASE PO SCH (08:03)
[2020-01-18 08:15] LABS: HEMATOCRIT. 26.3 % (42.0-52.0); HEMOGLOBIN. 8.9 g/dL (14.0-18.0); MEAN CORPUSCULAR HEMOGLOBIN 31.5 pg (28.0-32.0); MEAN CORPUSCULAR VOLUME 92.7 fL (80.0-94.0); MEAN PLATELET VOLUME 11.8 fl (7.4-10.4); PLATELET 80 x1000/uL (130-400); RED BLOOD CELL COUNT 2.84 mill/uL (4.7-6.1); RED CELL DISTRIBUTION WIDTH 21.8 % (11.6-14.6)
[2020-01-18 08:24] LABS: CHLORIDE 107 mEq/L (98-107)
[2020-01-18] MEDS: DOCUSATE SODIUM 250MG CAPSULE PO SCH (09:21)
[2020-01-18] MEDS: PROPRANOLOL HCL 10MG TABLET PO SCH ×2 (09:21→20:58)
[2020-01-18] MEDS: FERROUS SULFATE 325MG TABLET PO SCH ×3 (09:21→18:25)
[2020-01-18 12:00] VITALS: BP 113/66
[2020-01-18] MEDS: CEFTRIAXONE 1 G PREMIX 50 ML IV SCH (14:04)
[2020-01-18 16:00] VITALS: BP 134/76
[2020-01-18 16:40] LABS: PLATELET ESTIMATE DECREASED
[2020-01-18 20:00] VITALS: BP 130/76
[2020-01-19] VITALS: BP 101/51
[2020-01-19] MEDS: FOLIC ACID 1 MG, THIAMINE HCL 100 MG, MVI, ADULT NO.1 10 ML in DEXTROSE 5% WATER 1,000 ML IV SCH ×4 (01:36)
[2020-01-19] MEDS: DEXTROSE 5% WATER 1,000 ML IV SCH ×2 (02:00→12:22)
[2020-01-19 04:00] VITALS: BP 104/60
[2020-01-19 06:13] LABS: BASOPHILS % 0.7 % (0.0-2.0); EOSINOPHILS % 6.2 % (0.0-5.0); HEMATOCRIT. 26.6 % (42.0-52.0); HEMOGLOBIN. 9.2 g/dL (14.0-18.0); LYMPHOCYTES % 9.8 % (20.0-50.0); MEAN CORPUSCULAR VOLUME 92.9 fL (80.0-94.0); MONOCYTES % 11.4 % (2.0-8.0); NEUTROPHILS % 71.9 % (40.0-76.0); PLATELET 81 x1000/uL (130-400); RED BLOOD CELL COUNT 2.86 mill/uL (4.7-6.1); RED CELL DISTRIBUTION WIDTH 21.9 % (11.6-14.6)
[2020-01-19 06:17] LABS: CHLORIDE 108 mEq/L (98-107)
[2020-01-19 08:01] VITALS: BP 110/57
[2020-01-19] MEDS: OMEPRAZOLE 20MG CAPSULE EXTENDED RELEASE PO SCH (08:08)
[2020-01-19] MEDS: FERROUS SULFATE 325MG TABLET PO SCH ×2 (08:08→13:10)
[2020-01-19] MEDS: DOCUSATE SODIUM 250MG CAPSULE PO SCH (08:08)
[2020-01-19] MEDS: PROPRANOLOL HCL 10MG TABLET PO SCH (08:10)
[2020-01-19 12:00] VITALS: BP_SYST 119; BP_SYST 121; BP_DIAS 67; BP_DIAS 70; BP_DIAS 71
[2020-01-19] MEDS: CEFTRIAXONE 1 G PREMIX 50 ML IV SCH (14:21)
[2020-01-19 16:00] VITALS: BP 124/68
[2020-01-19] MEDS ORDERED: NITR-87 MT (17:07)
[2020-01-19 18:29] VITALS: BP 124/68
== END 2020-01-19 19:10 | disposition home or self-care (01) | DRG 241 ==
LOC: ER 13:17 → 7WST 20:52 → EDBEDREQ 20:54 → EDBEDREQTM 21:00 → ENRESERV 23:20
PROVIDERS: ADMIT Internal Medicine; ATTEND Internal Medicine
DX: K29.70 Gastritis, unspecified, without bleeding (principal); E43 Unspecified severe protein-calorie malnutrition; D69.6 Thrombocytopenia, unspecified; I85.10 Secondary esophageal varices without bleeding; K76.6 Portal hypertension; G90.8 Other disorders of autonomic nervous system; K70.30 Alcoholic cirrhosis of liver without ascites; L97.919 Non-pressure chronic ulcer of unspecified part of right lower leg with unspecified severity; N39.0 Urinary tract infection, site not specified; D64.9 Anemia, unspecified; I10 Essential (primary) hypertension; I87.2 Venous insufficiency (chronic) (peripheral); F10.10 Alcohol abuse, uncomplicated; B96.89 Other specified bacterial agents as the cause of diseases classified elsewhere; J45.909 Unspecified asthma, uncomplicated; Z79.899 Other long term (current) drug therapy; Z68.33 Body mass index [BMI] 33.0-33.9, adult
CPT/HCPCS: 36415; 71045; 74176; 74177; 80048; 80053; 80305; 81003; 85025; 87077; 87186; 90686; 93005; 97116; 97162; 99285; J0696; J2405; J3411; J3490; J7030; J7070; Q9967